=== PATIENT | male | born 1955 | race Caucasian/White ===

== ENCOUNTER 2016-11-21 16:04 | Emergency (ER) | payer OTHER ==
[~2016-11-21] VITALS: Ht 190.5 cm; Wt 136.4 kg
[2016-11-21 16:35] VITALS: BP 149/80; PULSE 89; RESP 18; O2SAT 96
[2016-11-21 18:34] LABS: BASOPHILS % (AUTO) 0.4 % (0-3); EOSINOPHILS % (AUTO) 1.3 % (0-5); MONOCYTES % (AUTO) 7.9 % (4-12); Mean Corpuscular Hemoglobin 28.4 pg (27.0-35.0); Mean Corpuscular Volume 87.8 fL (81-100); NEUTROPHILS % (AUTO) 81.2 % (40-74); Platelet Count 239 bil/L (150-400)
--- NOTE | 2016-11-21 19:08 | DRSVH ---
PROCEDURE: X-RAY LEFT FOOT COMPLETE, MINIMUM THREE VIEWS ([id number]) INDICATIONS: R/O OSTEOMYLETIS TECHNIQUE: 3 views of the foot were acquired. COMPARISON: None. FINDINGS: Bones: No fractures or dislocations. No suspicious bony lesions. Soft tissues: No tibiotalar joint effusion. Achilles tendon appears normal. IMPRESSION: No acute fracture. No osseous lesion. If clinical suspicion and/or symptoms persist, fur ther assessment with repeat plainfilms, or advanced imaging (e.g., CT, MRI, or bone scan) may be help ful for further assessment. Dictated by: Ginger Becker M.D. on 11/21/2016 at 19:06 Approved by: Ginger Becker M.D. on 11/21/2016 at 19:06
--- NOTE | 2016-11-21 19:16 | ED.REPORT ---
HPI-Extremity Problem Lower Date of Service November 21, 2016 ED Provider: Kareem Menon PA-C Leandro is a 61-year-old male with a history of diabetes, neuropathy, hypertension , hyperlipidemia presenting with a chief complaint of a possible left foot infection. Patient reports noticing redness and swelling approximately 2 days ago followed shortly thereafter by the appearance of a sore on the lateral aspect of the fifth MTP joint. Patient reports the pain is aggravated by walking on the foot. He does not feel a significant amount of pain when at rest. Admits recent upper respiratory infection consisting of rhinorrhea, sore throat and fever. Denies continuing fevers, malaise, abdominal pain, vomiting, diarrhea, chest pain, coughing, shortness of breath. Nursing Notes Stated Complaint: POSS INFECTED LEFT FOOT Chief Complaint: Extremity Trauma Nursing Notes Reviewed: Yes Allergies: Coded Allergies: No Known Allergies (Unverified , 11/21/16) Scheduled Clindamycin (Clindamycin) 300 Mg Capsule 300 MG PO QID Clindamycin (Clindamycin) 150 Mg Capsule 150 MG PO QID General Time Seen by MD: 18:58 Chief Complaint Foot injury left Past Medical History Past Medical History Notes: Diabetes, neuropathy, hypertension, hyperlipidemia Review of Systems Negative unless stated otherwise in history of present illness Physical Exam General: Well appearing, well developed, obese, no acute distress. Left foot: Area of redness encompassing the forefoot and projecting up the medial aspect of the lower leg. Swelling and heat over the forefoot and ankle. DP pulse 2+, PT pulse not appreciated, brisk capillary refill in all digits. 2 cm sore on the lateral aspect of the fifth MTP joint with associated tenderness. Head: Atraumatic, normocephalic. Eyes: No scleral icterus or injection. No discharge. Vision grossly intact. ENT: Voice clear, hearing grossly intact. Respiratory: Regular rate and rhythm. Breath sounds present, clear to auscultation and equal bilaterally. No respiratory distress. No increased work of breathing, speaks in complete sentences. Cardiovascular: Regular rate and rhythm, without murmur, gallop or rub. No pedal edema. Gastrointestinal: Abdomen flat and non-tender without guarding or rebound. Bowel sounds normoactive. Skin: Warm and dry. Neurological: Grossly nonfocal. Psychological: Alert and oriented. Speech appropriate, linear and logical. Behavior appropriate. Initial Vital Signs Vital Signs (First) Date Time Temp Pulse Resp B/P Pulse Ox O2 Delivery O2 Flow Rate FiO2 11/21/16 16:35 36.4 89 18 149/80 96 Room Air Initial VS: Vital signs abnormal (mildly elevated blood pressure) Interpretation & Diagnostics Lab Results Interpretation Result Diagram: 11/21/16181411/21/161814 Test 11/21/16 18:15 White Blood Count 11.4th/mm3 (3.8-10.1) Red Blood Count 4.02mil/mm3 (4.40-5.80) Hemoglobin 11.4g/dL (13.8-17.2) Hematocrit 35.3% (41.0-50.0) Mean Corpuscular Volume 87.8fL (81-100) Mean Corpuscular Hemoglobin 28.4pg (27.0-35.0) Mean Corpuscular Hemoglobin Concent 32.3% (32.0-37.0) Red Cell Distribution Width 14.0% (12.3-15.4) Platelet Count 239bil/L (150-400) Neutrophils (%) (Auto) 81.2% (40-74) Lymphocytes (%) (Auto) 8.8% (14-46) Monocytes (%) (Auto) 7.9% (4-12) Eosinophils (%) (Auto) 1.3% (0-5) Basophils (%) (Auto) 0.4% (0-3) Hold Purple Top Tube Received (Received) Hold Blue Top Tube Received (Received) Sodium Level 137mEq/L (134-144) Potassium Level 4.9mEq/L (3.5-5.2) Chloride Level 101mEq/L (97-108) Carbon Dioxide Level 21mmol/L (18-29) Blood Urea Nitrogen 35mg/dL (6-24) Creatinine 1.07mg/dL (0.76-1.27) Estimat Glomerular Filtration Rate 75mL/min (>59) Glucose Level 272mg/dL (60-99) Lactic Acid Level 1.4mmol/L (0.4-2.0) Calcium Level 9.6mg/dL (8.5-10.1) Total Bilirubin 0.2mg/dL (0.0-1.2) Aspartate Amino Transf (AST/SGOT) 17U/L (0-50) Alanine Aminotransferase (ALT/SGPT) 17U/L (0-44) Alkaline Phosphatase 61U/L (25-160) Total Protein 6.9g/dL (6.4-8.4) Albumin 4.0g/dL (3.4-5.0) Hold [place] Top Tube Received (Received) Hold Montiel Top Tube Received (Received) X-Ray Interpretation Xray Interpretation: PROCEDURE: X-RAY LEFT FOOT COMPLETE, MINIMUM THREE VIEWS ([id number]) INDICATIONS: R/O OSTEOMYLETIs IMPRESSION: No acute fracture. No osseous lesion. If clinical suspicion and/or symptoms persist, further assessment with repeat plainfilms, or advanced imaging (e.g., CT, MRI, or bone scan) may be helpful for further assessment. Interpretation / Wet Read by: Interpret - Radiologist, Rin - VENICE Re-Eval/Medical Decision Med Decision/Clinical Course 61-year-old male with history of hypertension, diabetes, neuropathy, hyperlipidemia presents with chief complaint left foot swelling. Reports swelling for the last 2 or 3 days and the appearance of a sore on the lateral aspect of the fifth MTP joint. Denies systemic symptoms. Physical examination reveals swelling in the left foot/ankle and sore on the lateral aspect of the MTP joint. DP pulses 2+, PT pulses not appreciated. Brisk capillary refill in all digits. CBC reveals mild leukocytosis at 11.4 with a left shift and mild anemia. CMP reveals elevated glucose 272 as well as an elevated BUN at 35. I do not believe this is clinically relevant. X-ray reveals no bony involvement. This point I am reassured that there is unlikely be a systemic infection and I find DVT an unlikely cause of the swelling in his foot. I discussed his case with Dr. Vu, who recommends treatment with clindamycin and follow up with podiatry in 2-3 days. Advise [id number] analgesia, podiatry follow-up, provided emergency return precautions. Patient verbalizes understanding of and consented to plan. Discharge & Departure Impression: Primary Impression: Cellulitis of foot Additional Impression: Elevated blood pressure reading Disposition: Home Discharge Condition All VS Reviewed: Yes Condition: Stable Patient Instructions: Cellulitis (ED) Additional Instructions: Evaluation for left foot swelling in the emergency department consists of history, physical examination, blood tests and x-ray, all of which are reassuring that this is unlikely to be caused by a dangerous condition such as osteomyelitis, or infection the bone. There is no indication of a systemic infection at this time. I believe you are good candidate for outpatient treatment, safe to be discharged to home. I will write a prescription for Clindamycin. Take one 300 mg tablet and one 150 mg tablet 4 times a day. The pain is best treated with 800 mg of ibuprofen (Advil, Motrin) every 6 hours , or 1000 mg of acetaminophen (Tylenol) every 6 hours. These drugs can be taken at the same time for more severe pain. Be aware that your symptoms may not improve and may in fact worsen over the next day or 2. This is to be expected, even with appropriate antibiotic treatment. BB referral for podiatry follow up with . Please contact his office to arrange follow-up in the next 2 or 3 days. Return to emergency department for any new or worsening symptoms including fever , racing heart, cold sweats, feeling ill. I also note that your blood pressure was elevated during your visit to the emergency department. Please discuss this with your primary care provider. Referrals: David Leahy DPM EDSupervising Provider for APC: Jose Vu MD copies to: Greg Rivas MD; David Leahy DPM, Seth PA-C November 21, 2016 19:15
[2016-11-21] MEDS ORDERED: CLIN-78 PO (19:33)
[2016-11-21] MEDS ORDERED: CLIN-77 PO (19:34)
[2016-11-21 20:17] VITALS: BP 135/74; PULSE 76; RESP 16; O2SAT 97
== END 2016-11-21 20:18 | disposition home or self-care (01) ==
LOC: SED 16:04
DX: L03.116 Cellulitis of left lower limb (principal); I10 Essential (primary) hypertension; E11.40 Type 2 diabetes mellitus with diabetic neuropathy, unspecified; E78.5 Hyperlipidemia, unspecified

== ENCOUNTER 2017-03-10 16:41 | Inpatient (IN) | payer OTHER ==
[~2017-03-10] VITALS: Ht 190.5 cm; Wt 147.5 kg
[~2017-03-10 16:41] MED LIST: CLIN-77 PO; CLIN-78 PO
[2017-03-10 16:45] VITALS: BP 157/91; PULSE 95; RESP 17; O2SAT 98
[2017-03-10] MEDS ORDERED: cefTRIAXone Inj 2,000 MG in Dextrose 5% Minibag Plus 50 ML IV ONE (17:10)
[2017-03-10] MEDS ORDERED: 0.9% Sodium Chloride 1,000 ML IV ONE (17:16)
--- NOTE | 2017-03-10 17:16 | ED.REPORT ---
HPI-Rash / Abscess Date of Service Mar 10, 2017 ED Provider: Kareem Menon PA-C Leandro is a 61-year-old male with a history of diabetes and cellulitis presenting to emergency Department for left foot swelling. A one-month history of redness and swelling on the lateral aspect of his left foot that began when a corner was torn off accidentally. Associated with pain. He is able to walk on the affected limb. Today he noticed a small region of swelling and fluctuance. He was referred to mention from by his primary care provider. He denies numbness in his toes, fever, shaking chills, feeling ill, abdominal pain, vomiting. Treated several months ago in this department for similar symptoms Nursing Notes Stated Complaint: SWOLLEN LEFT FOOT Chief Complaint: General Complaint Nursing Notes Reviewed: Yes Allergies: Coded Allergies: Contrast Media (Verified Adverse Reaction, Severe, VOMITING - IMMEDIATELY AFTER IV INFUSION, 03/10/17) latex (Verified Adverse Reaction, Intermediate, RASH/SWELLING, 03/10/17) Scheduled Amlodipine (Amlodipine) 5 Mg Tablet 5 MG PO DAILY Bevacizumab (Avastin) 100 Mg/4 Ml Vial 1.25 MG INTRAVIT MONTHLY Ferrous Sulfate (Feosol) 325 Mg Tablet 325 MG PO BIDWM Glimepiride (Glimepiride) 4 Mg Tablet 8 MG PO DAILYAC Pioglitazone (Pioglitazone) 15 Mg Tablet 30 MG PO DAILYWM ACTOS 30 MG IN AM & 15 MG W/ DINNER Pioglitazone (Pioglitazone) 15 Mg Tablet 15 MG PO DAILYWD ACTOS 30 MG IN AM & 15 MG W/ DINNER Pravastatin (Pravastatin) 40 Mg Tablet 40 MG PO HS Scheduled PRN Cyclobenzaprine (Cyclobenzaprine) 10 Mg Tablet 10 MG PO Q8H PRN PRN Spasm Sildenafil Citrate (Sildenafil) 20 Mg Tablet 40-100 MG PO ASDIRECTED PRN PRN for sexual activity diphenhydrAMINE HCl (Benadryl) 25 Mg Capsule 25 MG PO Q4 PRN PRN ALLERGIES oxyCODONE-Acetaminophen 5-325 mg (oxyCODONE-Acetaminophen 5-325 mg) 1 Each Tablet 1 TAB PO Q4H PRN PRN For Pain General Time Seen by MD: 16:52 Chief Complaint Tender/swollen area Past Medical History Past Medical History Notes: Diabetes, neuropathy, hypertension, hyperlipidemia Review of Systems Review of Systems Note: Negative unless stated otherwise in history of present illness Physical Exam General: Well appearing, well developed, well nourished, no acute distress. Left foot: Redness and swelling over the distal lateral aspect of the forefoot as well as the third fourth and fifth digits. Blood blister on the plantar surface of the fifth MTP joint, large area of callous associated. 2 cm area of fluctuance on the superior lateral aspect of the MTP joint. Sensation intact in distal phalanges as well as brisk capillary refill. DP and PT pulses 2+. The foot is warm. Head: Atraumatic, normocephalic. Eyes: No scleral icterus or injection. No discharge. Vision grossly intact. ENT: Voice clear, hearing grossly intact. Respiratory: No respiratory distress, no increased work of breathing. Speaks in complete sentences. Skin: Warm and dry. Neurological: Grossly nonfocal. Psychological: alert and oriented. Speech appropriate, linear and logical. Behavior appropriate. Initial Vital Signs Elevated blood pressure Interpretation & Diagnostics Lab Results Interpretation Result Diagram: 03/16/17 0609 Test 03/10/17 17:54 Erythrocyte Sedimentation Rate 76mm/hr (0-30) Hemoglobin A1c 7.3% (4.8-5.6) Lactic Acid Level 1.2mmol/L (0.4-2.0) Phosphorus Level 4.0mg/dL (2.5-4.9) Total Bilirubin 0.2mg/dL (0.0-1.2) Aspartate Amino Transf (AST/SGOT) 38U/L (0-50) Alanine Aminotransferase (ALT/SGPT) 38U/L (0-44) Alkaline Phosphatase 84U/L (25-160) Total Protein 8.2g/dL (6.4-8.4) Albumin 4.2g/dL (3.4-5.0) ECG Interpretation ECG Interpretation: Sinus rhythm with a rate of 90, left anterior fascicular block, no ischemic changes. Time: 17:39 Interpreted by: ED physician (Dr. Parra) X-Ray Interpretation Xray Interpretation: PROCEDURE: X-RAY LEFT FOOT COMPLETE, MINIMUM THREE VIEWS ([id number]) INDICATIONS: infection. ? Osteomyelitis? IMPRESSION: Significant erosive changes within the fifth digit and questionable early changes in the fourth digit as above. Findings are consistent of osteomyelitis. Interpretation / Wet Read by: Interpret - Radiologist, Interp - AHP Re-Eval/Medical Decision Med Decision/Clinical Course Dr. David met with and examined the patient. He will decompress the wound here in the emergency department, requested admission to hospitalist service, initiation of vancomycin and Zosyn IV and he will plan for surgery in the morning. Patient is resistant to surgery however consents to hospitalization and IV antibiotics which are initiated. Discussed the case with hospitalist, accepts admission and the patient is transferred to floor in stable condition. Consultation #1: Call Returned at: 17:19 Backend Java Developer: Will see patient Note: Will see pt in the ER and see if he can do debridement in the ER with anticpation of home care. Xray and labs currently pending. Consultation #2: Referral / Consult Name: Jeremie Hurst MD Backend Java Developer: Accepts admit Discharge & Departure Referrals: Greg Rivas MD (PCP) EDSupervising Provider for APC: Era Parra MD Attending Statement pt seen and examined cellulitis with abscess/cellulitis over the lateral portion of foot/small toe. Small area of blistering is unroofed and sent for culture. Labs, x-ray. Case is discussed with Dr. David, podiatry. We will come to the emergency department if he can actually do any debriding here in the emergency room in anticipation of discharge from the ER rather than hospitalization. We will certainly need to evaluate all labs as they return to see if discharge is a safe disposition. On initial evaluation, I am not concerned with sepsis and he does have good blood flow to the wound area and the remainder of the foot Seen in the ER by Dr David. Debridement done and after eval decision to admit for IV abx and additoinal surgical debridement was determined to be necessary. Kareem Menon PA-C Mar 10, 2017 17:16 Era Parra MD Mar 10, 2017 17:22 Phosphorus Level 4.0mg/dL (2.5-4.9) Total Bilirubin 0.2mg/dL (0.0-1.2) Aspartate Amino Transf (AST/SGOT) 38U/L (0-50) Alanine Aminotransferase (ALT/SGPT) 38U/L (0-44) Alkaline Phosphatase 84U/L (25-160) Troponin T 0.015ug/L (0.0-0.011) C-Reactive Protein 4.9mg/dL (0.0-0.5) Total Protein 8.2g/dL (6.4-8.4) Albumin 4.2g/dL (3.4-5.0) ECG Interpretation ECG Interpretation: Sinus rhythm with a rate of 90, left anterior fascicular block, no ischemic changes. Time: 17:39 Interpreted by: ED physician (Dr. Parra) X-Ray Interpretation Xray Interpretation: PROCEDURE: X-RAY LEFT FOOT COMPLETE, MINIMUM THREE VIEWS ([id number]) INDICATIONS: infection. ? Osteomyelitis? IMPRESSION: Significant erosive changes within the fifth digit and questionable early changes in the fourth digit as above. Findings are consistent of osteomyelitis. Interpretation / Wet Read by: Interpret - Radiologist, Interp - P Re-Eval/Medical Decision Med Decision/Clinical Course Dr. David met with and examined the patient. He will decompress the wound here in the emergency department, requested admission to hospitalist service, initiation of vancomycin and Zosyn IV and he will plan for surgery in the morning. Patient is resistant to surgery however consents to hospitalization and IV antibiotics which are initiated. Discussed the case with hospitalist, accepts admission and the patient is transferred to floor in stable condition. Consultation #1: Call Returned at: 17:19 Backend Java Developer: Will see patient Note: Will see pt in the ER and see if he can do debridement in the ER with anticpation of home care. Xray and labs currently pending. Consultation #2: Referral / Consult Name: Jeremie Hurst MD Backend Java Developer: Accepts admit Discharge & Departure Referrals: Greg Rivas MD (PCP) EDSupervising Provider for APC: Era Parra MD Attending Statement pt seen and examined cellulitis with abscess/cellulitis over the lateral portion of foot/small toe. Small area of blistering is unroofed and sent for culture. Labs, x-ray. Case is discussed with Dr. David, podiatry. We will come to the emergency department if he can actually do any debriding here in the emergency room in anticipation of discharge from the ER rather than hospitalization. We will certainly need to evaluate all labs as they return to see if discharge is a safe disposition. On initial evaluation, I am not concerned with sepsis and he does have good blood flow to the wound area and the remainder of the foot Kareem Menon PA-C Mar 10, 2017 17:16 Era Parra MD Mar 10, 2017 17:22
[2017-03-10 18:08] LABS: BASOPHILS % (AUTO) 0.6 % (0-3); EOSINOPHILS % (AUTO) 2.2 % (0-5); Mean Corpuscular Hemoglobin 27.2 pg (27.0-35.0); Mean Corpuscular Volume 85.4 fL (81-100); NEUTROPHILS % (AUTO) 75.1 % (40-74); Platelet Count 418 bil/L (150-400)
[2017-03-10 18:22] LABS: ERYTHROCYTE SEDIMENTATION RATE 76 mm/hr (0-30)
--- NOTE | 2017-03-10 18:24 | DRSVH ---
PROCEDURE: X-RAY LEFT FOOT COMPLETE, MINIMUM THREE VIEWS ([id number]) INDICATIONS: infection. ? Osteomyelitis? TECHNIQUE: 3 views of the foot were acquired. COMPARISON: [facility], CR, XR FOOT 3VW LT, 11/21/2016, 18:34. FINDINGS: Bones: There has been interval erosion of the distal fifth metatarsal and proximal fifth phalanx. Min imal appearance of questionable lucency is noted along the lateral aspect of the distal fourth metata rsal. Significant soft tissue swelling is present within the fifth digit. Soft tissues: No tibiotalar joint effusion. Achilles tendon appears normal. IMPRESSION: Significant erosive changes within the fifth digit and questionable early changes in the fourth digit as above. Findings are consistent of osteomyelitis. Dictated by: Jennifer Patten M.D. on 03/10/2017 at 18:22 Approved by: Jennifer Patten M.D. on 03/10/2017 at 18:23
[2017-03-10 18:29] LABS: TROPONIN T 0.015 ug/L (0.0-0.011)
[2017-03-10 18:40] VITALS: BP 139/75; PULSE 84; RESP 24; O2SAT 97
[2017-03-10] MEDS ORDERED: Vancomycin Dose per Pharmacist XX ONE (19:00)
[2017-03-10] MEDS ORDERED: Piperacillin-Tazo 3.375 Gm Inj 3.375 GM in Dextrose 5% Minibag Plus 50 ML IV ONE (19:00)
[2017-03-10] MEDS ORDERED: 0.9% Sodium Chloride 1,000 ML IV SCH (19:09)
[2017-03-10] MEDS ORDERED: Alum-Mag Hydrox-Simeth 30 mL Suspension PO PRN (19:10)
--- NOTE | 2017-03-10 19:20 | PCM.HPMED ---
Subjective Date of Service Mar 10, 2017 Primary Provider: Admitting Physician: Primary Care Physician: Greg Rivas MD Attending Physician: Chief Complaint: Patient 61-year-old male from home presented to the ED under the recommendation of his PCP to the ED for further evaluation of his left lower foot wound History of Present Illness: Patient carries a medical history significant for long-standing diabetes with peripheral neuropathy, hypertension, dyslipidemia. Per patient, he reports having left lower foot swollen up to the ankle with associated erythema and purulent discharge for about 1.5-2 weeks. Though patient denies any fever, chills or night sweats. Left fifth toe became infected back in 11/2016 and was placed initially on clindamycin for about a week , then added Bactrim to reduce swelling and ulcer after 3 weeks. Patient later went [place] cruise ship in 01[place], lacerated his left fifth toe, which immediately became infected, swollen red travels up to this ankle. After the cruise ship, patient restarted his clindamycin and Bactrim with good effects after 1 week. Symptoms however recurs within the past 2 weeks status sought medical attention at the advice from his PCP. In the ED, significant left lower leg swelling up to the ankle prompted 3 view left foot x-ray which showed severe erosive changes within the fifth digit and questionable early change fourth digits consistent with osteomyelitis. Lab work further showed elevated white count 12.7 with neutrophil 75.1%. And C- reactive protein of 4.9. BMP show BUN 54, creatinine 1.86. This is significantly elevated from earlier lab work in 11/2016, creatinine 1.07 at the time. Additionally troponin T mild elevated 0.015. EKG showed no ST changes, however does note left fascicular block. Dr. David on-call podiatry was consulted, came to evaluate and initial debridement of the wound demonstrates cellulitis with osteomyelitis and recommended that patient undergo further debridement in the OR. Patient however reluctant to agree. Patient states agreement to the use of antibiotics, will consider surgery in the a.m. Review of Systems: A comprehensive review of systems was conducted with the patient and found to be negative except as above in the History of Present Illness. Allergies Coded Allergies: Contrast Media (Verified Adverse Reaction, Severe, VOMITING - IMMEDIATELY AFTER IV INFUSION, 03/10/17) latex (Verified Adverse Reaction, Intermediate, RASH/SWELLING, 03/10/17) Home Medications Avastin 1.25 mg monthly Cyclobenzaprine 10 mg every 8 hours when necessary Benadryl 25 mg every 4 hours when necessary Glyburide 8 mg daily Hydroxy code on acetaminophen 5/325 mg every 6 hours when necessary Lisinopril 10 mg every morning Metformin 2000 mg in a.m. thousand milligrams p.m. pioglitazone 30 mg in a.m. 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 PERRLA, EOMI, Anicteric sclerae, moist conjunctivae. Neck: No JVD, No bruits. No lymphadenopathy or thyromegaly. Cardiovascular: Regular rate and rhythm with no murmurs, rubs, or gallops appreciated Pulmonary: b/l air sound with no crackles, wheezes, or rhonchi. no use of accessory muscles. Abdomen: +Bowel sound, Soft, nontender, nondistended. Extremities: No clubbing or cyanosis, no lymphedema, no b/l lower leg edema, left fourth and fifth toe and age, tender, no erythema Skin: Normal temperature, turgor, and texture; no rash. No visualized skin ulcer. Neurological: CN II-VII grossly intact, moving equally on all 4 extremities Psychiatric: Normal mood and affect. AOx3 Lab and Diagnostics Result Diagram: 03/10/17175303/10/171753 Assessment & Plan Patient 61-year-old male with medical history significant for diabetes type II presented with left swollen foot, admitted for cellulitis possible osteomyelitis as well. Left foot cellulitis and osteomyelitis -has DMII with peripheral neuropathy -Blood, wound culture, MRSA screening pending -broad spec abx: renally dosed vancomycin and zosyn -NPO at midnight. Podiatry Dr. David examine and did initial d/c at bedside, will take patient patient to OR should patient agrees tomorrow for further debridement. Sepsis -met SIRS criteria, cellulitis/osteomyelitis -lactic acid normal, hypertensive, no aggressive fluids -NS 125cc/hr plus abx given Acute kidney injury -BUN/Cr >20, poor po intake -hold lisinopril -hydrate NS 125cc/hr Elevated troponin with unknown significant -mildly elevated in the setting of JUAN DAVID -cont home statin, added asa 81mg -trending trops -telemetry monitoring Diabetes type II, non-insulin dependent -hold home meds -start Lispro low dose sliding scale Hypertension -holding lisinopril Dyslipidemia -cont home atorvastatin CODE STATUS full code DVT prophylaxis heparin Patient Status: Patient is admitted under inpatient status with expected length of stay GREATER than 2 midnights due to severity of presenting symptoms, risk of adverse event, and complexity of treatment plan. GI Prophylaxis: Not indicated VTE Prophylaxis: Sub-Q Heparin (Unfractionated) Resuscitation Status: CPR: Attempt Resuscitation Attending Statement The patient was seen and examined together with Dr. Ch on 03/10 and I agree with the history, exam and plan as outlined in the note above. Larry Ch DO Mar 10, 2017 19:20 Jeremie Hurst MD Mar 11, 2017 00:11
[2017-03-10] MEDS ORDERED: Vancomycin Inj 2,250 MG in 0.9% Sodium Chloride 500 ML IV ONE (19:25)
--- NOTE | 2017-03-10 19:41 | PCM.CHPPOD ---
Subjective Date of service Mar 10, 2017 History of Present Illness This 61-year-old male is seen in the emergency department at the request of Dr. Era Jones for diabetic foot infection on the left. Patient's is present. Patient states he has a chronic callus sub-fifth metatarsal head on the left which he feels has been made worse by the need to overload this foot to protect a [place] fracture on the right in the past year. Patient further staple see is aware of sustaining a laceration in this region proximally one month ago. He is a long-standing type II diabetic, stating hemoglobin A1c typically in the low to mid 7 range. He states he has neuropathy, no known nephropathy. Patient noted increased swelling redness and warmth in the past week lateral aspect of the left foot, more recently purulent drainage and malodor. He denies fever chills or malaise. 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 He denies history of diabetic foot infections ulcerations or nonhealing wounds previously. Patient states he is highly reluctant to remain hospitalized, although would consent to outpatient IV antibiotics. 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 He exhibits generally poor insight as to the severity of his condition. Reason for Consultation Diabetic foot infection with osteomyelitis fifth metatarsal head left foot Allergy Allergies: Coded Allergies: No Known Allergies (Unverified , 11/21/16) Medications Clindamycin (Clindamycin) 300 Mg Capsule 300 MG PO QID Clindamycin (Clindamycin) 150 Mg Capsule 150 MG PO QID Past Medical History Additional information Please see medical history and physical Social History Hx Tobacco Use: No Podiatry Consult Exam Vital Signs Vital Sign - Last Date Time Temp Pulse Resp B/P Pulse Ox O2 Delivery O2 Flow Rate FiO2 03/10/17 18:40 84 24 139/75 97 Room Air 03/10/17 16:45 37 Result Diagram: 03/10/17 1754 03/10/17 1754 Lab Test 03/10/17 17:54 White Blood Count 12.7th/mm3 (3.8-10.1) Red Blood Count 3.90mil/mm3 (4.40-5.80) Hemoglobin 10.6g/dL (13.8-17.2) Hematocrit 33.3% (41.0-50.0) Mean Corpuscular Volume 85.4fL (81-100) Mean Corpuscular Hemoglobin 27.2pg (27.0-35.0) Mean Corpuscular Hemoglobin Concent 31.8% (32.0-37.0) Red Cell Distribution Width 13.4% (12.3-15.4) Platelet Count 418bil/L (150-400) Neutrophils (%) (Auto) 75.1% (40-74) Lymphocytes (%) (Auto) 10.5% (14-46) Monocytes (%) (Auto) 11.0% (4-12) Eosinophils (%) (Auto) 2.2% (0-5) Basophils (%) (Auto) 0.6% (0-3) Erythrocyte Sedimentation Rate 76mm/hr (0-30) Sodium Level 138mEq/L (134-144) Potassium Level 4.6mEq/L (3.5-5.2) Chloride Level 100mEq/L (97-108) Carbon Dioxide Level 20mmol/L (18-29) Blood Urea Nitrogen 54mg/dL (6-24) Creatinine 1.86mg/dL (0.76-1.27) Estimat Glomerular Filtration Rate 40mL/min (>59) Glucose Level 161mg/dL (60-99) Lactic Acid Level 1.2mmol/L (0.4-2.0) Calcium Level 9.5mg/dL (8.5-10.1) Total Bilirubin 0.2mg/dL (0.0-1.2) Aspartate Amino Transf (AST/SGOT) 38U/L (0-50) Alanine Aminotransferase (ALT/SGPT) 38U/L (0-44) Alkaline Phosphatase 84U/L (25-160) Troponin T 0.015ug/L (0.0-0.011) C-Reactive Protein 4.9mg/dL (0.0-0.5) Total Protein 8.2g/dL (6.4-8.4) Albumin 4.2g/dL (3.4-5.0) Diagnostics Aerobic swab culture has been taken of the purulent exudate ulcer sub-fifth metatarsal head left foot by ED staff and results are pending, three-view plain x-ray shows ongoing and dissolution of the fifth metatarsal head additionally there is malangulation may represent sequela of prior fracture versus pathologic fracture. There is diffuse edema circumferentially at the fifth metatarsal phalangeal joint. No gas in the soft tissues. No intimal calcification of the pedal vasculature. Exam General: Mild Distress Lower Extremities: Left: Edema localized Extremity warm Other Lower Extremity Pulses: Palpable: Left Posterior Tibal Right Dorsalis Pedis Right Posterior Tibal Absent: Left Dorsalis Pedis Additional Information: Lower extremity exam shows palpable posterior tibial pulses bilaterally, trace dorsalis pedis on the left, dorsalis pedis on the right. Capillary refill is brisk, feet devoid of digital hair growth. Patient has diminished epicritic sensations bilaterally. The left foot exhibits diffuse erythema extending to the proximal midfoot dorsally. There is a dorsal abscess overlying the fifth metatarsal head exuding purulent exudate. There is a 1.5 x 1.5 cm circular ulceration sub- fifth metatarsal head with surrounding plaque-like hyperkeratosis. The foot is malodorous. The digits appeared viable with brisk capillary refill and no gangrenous changes. Effleurage of the distal lateral forefoot does increase exudation. There is no significant lymphangitis. Findings of incision and drainage show a dorsal to plantar sinus tract, purulent exudate from both portals, mild fluctuance at the fifth metatarsal head. Assessment & Plan Assessment Diabetic foot infection with osteomyelitis of the fifth metatarsal head and ascending cellulitis left foot in a patient with severe peripheral neuropathy, and clinically minimal vasculopathy although he may have small vessel disease. Problems: Plan I spent consider full-time discussing the severity and potential for limb loss if this infection is not treated aggressively. Patient is fairly persistent in stating he does not wish to be admitted but does ultimately consent. After discussion of options decision is made and consent signed for ED I&D of the wound to help slow proximal progression, and improve efficacy of parenteral antibiotics. Patient is aware this is simply a temporary measure and is certainly not meant as a definitive treatment. Patient will require operative incision and drainage, resection of metatarsal head, possible amputation of the fifth ray, and is scheduled for this at 9 AM tomorrow morning. Procedure note: I was able to perform I&D without need for local anesthetic, with only mild procedural discomfort. The foot was prepped with Hibiclens, draped and attention directed to the dorsal abscess where a 1 cm incision was made. There was noted to be full-thickness necrosis in the region of the dorsal lateral fifth metatarsal head and fifth intermetatarsal space and the wound was readily probed to the plantar surface. The diffuse plaque-like hyperkeratotic lesion was tangentially debrided, the circumferential R ulcer was enucleated with a 15 blade and I was able to probe from plantar to dorsal. Devitalized tissues were excised. The wound did bleed freely and clotted promptly. The site was irrigated with sterile saline with a 10 cc syringe, saline wet-to-dry loose mesh gauze packing placed dorsally and plantarly followed by a noncompressive bulky gauze bandage. Patient will be started on parenteral antibiotics per the covering hospitalist, taking note of patient's renal compromise. I will discuss the operative consent and need to resect the fifth metatarsal head in order to perform a thorough debridement of this wound with him in the morning. Patient is made aware that healing this type wound is typically measured in weeks rather than days, and he should modify his expectations accordingly. Time spent 90 min Rick David DPM Mar 10, 2017 19:41
[2017-03-10] MEDS: Vancomycin Dose per Pharmacist XX SCH (19:53)
[2017-03-10] MEDS ORDERED: Glucose 40% Oral Gel 15 Gm Tube PO PRN (20:05)
[2017-03-10] MEDS ORDERED: HYDROcodone-APAP 5-325 mg Tablet PO PRN (20:05)
[2017-03-10] MEDS ORDERED: METF1000 PO ×2 (20:09)
[2017-03-10] MEDS ORDERED: DIPH25CA6 PO (20:14)
[2017-03-10] MEDS ORDERED: PIOG15TA21 PO ×2 (20:14)
[2017-03-10] MEDS ORDERED: CYCL10TA9 PO (20:14)
[2017-03-10] MEDS ORDERED: PRAV40TA PO (20:14)
[2017-03-10] MEDS ORDERED: HYDR-4003 PO (20:14)
[2017-03-10] MEDS ORDERED: GLIM4TAB2 PO (20:14)
[2017-03-10] MEDS ORDERED: SILD20TA14 PO (20:14)
[2017-03-10] MEDS ORDERED: LISI-567 PO (20:14)
[2017-03-10] MEDS ORDERED: AVA100I INTRAVIT (20:16)
[2017-03-10 20:19] VITALS: BP 127/53; PULSE 81; RESP 25; O2SAT 97
[2017-03-10] MEDS ORDERED: HYDROmorphone 1 mg/mL Inj IVPUSH PRN (20:25)
[2017-03-10] MEDS: Ondansetron 2 mg/mL 2 mL Inj IVPUSH PRN (20:43)
[2017-03-10 20:47] VITALS: BP 130/50; PULSE 81; RESP 16; O2SAT 97
[2017-03-10 21:05] VITALS: BP 125/77; PULSE 88; RESP 18; O2SAT 96
--- NOTE | 2017-03-10 21:13 | PCM.PHAPRO ---
Progress Date of Service: Mar 10, 2017 Patient 61-year-old male from home presented to the ED under the recommendation of his PCP to the ED for further evaluation of his left lower foot wound Vancomycin Management per Pharmacy Indication: Osteomyelitis of R toe Goal Vanco Trough: 15-20 mg/dL Age: 61 yo Weight: 136 kg Labs: WBC: 12.7 ESR: 76 CRP: 4.9 Lactic Acid: 1.2 SrCr: 1.84 Est CrCl: ~55 mL/min Vitals: All stable Nephrotoxic Risk Factors: Acute Kidney Injury (today SrCr = 1.84 mg/dL, baseline ~1.1 mg/dL), diabetes, Zosyn IV, Pt states he has not been drinking water ~ 1 week bc his refrigerator was broken and he doesn't like warm water, DENIES taking NSAIDS, has NOT been on Bactrim for > 2 months Additional Antibiotics: Zosyn IV Recommendation: Vancomycin 2250 mg IV x 1 given in ED (~16 mg/kg) Maintenance dose: Vancomycin 750 mg IV Q12h, this dose will likely have to be increased if renal function improves w/ hydration (as pt states dehydrated due to not drinking water). As pt did receive an adequate loading dose, I will continue at a smaller dose because of the nephrotoxic risk factors listed above and monitor SrCr for now. Vanco Trough: 03/12 @ 1930 prior to 4th dose. Pharmacy to continue to monitor and adjust dose as needed. Thank You, Salma Harris, Pharm D. Salma Harris Mar 10, 2017 21:13
--- NOTE | 2017-03-10 21:17 | NUR ---
Admit Patient arrived from ED at 2054. Patient A&OX3. Vitals stable. Peripheral IV patent, right AC. Report received from Norma RIVERA. Patients at bedside. Care continues.
[2017-03-10] MEDS: Insulin LISPRO 300 Unit/3 mL Inj SUBQ SCH (22:00)
[2017-03-10] MEDS: 0.9% Sodium Chloride 1,000 ML IV SCH (22:47)
[2017-03-11] VITALS (10 sets, daily range): BP systolic 123–169; BP diastolic 58–96; PULSE 64–86; RESP 15–24; O2SAT 92–100
[2017-03-11] MEDS: Sodium Chloride LOK Flush 10 mL Syringe IVFLUSH SCH ×3 (00:30→18:12)
[2017-03-11] MEDS: Heparin 5,000 Unit/mL Inj SUBQ SCH ×3 (01:29→18:06)
[2017-03-11] MEDS: Piperacillin-Tazo 3.375 Gm Inj 3.375 GM in Dextrose 5% Minibag Plus 50 ML IV SCH ×3 (03:24→19:48)
--- NOTE | 2017-03-11 04:17 | NUR ---
Pain Patient states he doesn't feel like he needs anything for pain. Patient's blood sugar 75, monitoring closely. Patients vitals stable. care continues.
[2017-03-11] MEDS: 0.9% Sodium Chloride 1,000 ML IV SCH ×3 (06:53→19:49)
[2017-03-11] MEDS: Insulin LISPRO 300 Unit/3 mL Inj SUBQ SCH ×4 (08:00→22:00)
[2017-03-11] MEDS ORDERED: Ondansetron 2 mg/mL 2 mL Inj ONE (08:02)
[2017-03-11] MEDS ORDERED: fentaNYL-PF 50 mCg/mL 2 mL Inj ONE (08:02)
[2017-03-11] MEDS ORDERED: Propofol 10,000 mCg/mL 20 mL Inj ONE (08:02)
[2017-03-11] MEDS ORDERED: Vancomycin Inj 750 MG in 0.9% Sodium Chloride 250 ML IV SCH (08:30)
[2017-03-11] MEDS: Vancomycin Dose per Pharmacist XX SCH (08:52)
--- NOTE | 2017-03-11 09:59 | PCM.PNMED ---
Subjective Date of Service Mar 11, 2017 Subjective Patient is in bed, complaining of pain in his left foot Exam Vital Signs Vital Sign - Last Date Time Temp Pulse Resp B/P Pulse Ox O2 Delivery O2 Flow Rate FiO2 03/11/17 04:16 36.8 78 18 133/73 92 Room Air Intake and Output 03/10/17 03/10/17 03/11/17 Cumulative From/Thru 15:00 23:00 07:00 03/10/17 16:45 - 03/11/17 06:31 Intake Total 1000 ml 1025 ml 2025 ml Balance 1000 ml 1025 ml 2025 ml Intake Oral 1025 ml 1025 ml IV Total 1000 ml 1000 ml # Voids 2 2 Exam GENERAL: Alert, not in distress, cooperative HEAD: atraumatic, normocephalic, no bruises. EYES: ROBINSON, EOMI, anicteric, able to fully open and close eyelids SKIN: Skin color normal, turgor normal. No visible rashes or lesions. EAR, NOSE, MOUTH, THROAT: Lips, oral mucosa, tongue gums, oropharynx are moist , pink, no lesions. Ears normal appearance, no lesions. NECK: no jugulovenous distention; supple ROM normal. RESPIRATORY: Lungs clear to auscultation. Good diaphragmatic excursion. CARDIAC: normal S1 and S2; no rubs, murmurs, or gallops; regular rate and rhythm ABDOMEN: Abdomen soft, non-tender. BS normal. No masses or organomegaly. MUSCULOSKELETAL: ROM full, muscles are not tender; left foot in dressing EXTREMITIES: no pitting edema in LE, no new deformities or skin discoloration. NEURO: Alert, oriented X 3, Sensation grossly intact., Cranial nerves II-XII intact, Grossly normal motor function. PULSES: 2+ radial, 2+ carotid Lab and Diagnostics Result Diagram: 03/10/17175303/10/171753 Assessment & Plan Patient 61-year-old male with medical history significant for diabetes type II presented with left swollen foot, admitted for cellulitis possible osteomyelitis as well. Sepsis. Left foot cellulitis and osteomyelitis , s/p I&D - stable Plan - f/u Blood, wound culture - c/w broad spec abx: renally dosed vancomycin and zosyn - Podiatry Dr. David will take the patient to OR for resection of metatarsal head, possible amputation of the fifth ray - c/w IVF Acute kidney failure - stable Plan - IVF - monitor kidney function daily Elevated troponin with unknown significant - improved -mildly elevated in the setting of JUAN DAVID -cont home statin, asa 81mg Diabetes type II, non-insulin dependent - ISS, Acuchecks Hypertension - BP stable Dyslipidemia -cont home atorvastatin CODE STATUS full code DVT prophylaxis heparin Plan of care discussed with patient. Labs, radiology tests and ECG reviewed. Plan of care, medication side effects, home medication, diagnostic procedures and available alternatives were discussed and reviewed with patient. All questions answered. Patient verbalized understanding, approved and agreed to plan of care. GI Prophylaxis: Not indicated VTE Prophylaxis: Sub-Q Heparin (Unfractionated) VTE Mechanical Devices: Intermittant Pneumatic CD Resuscitation Status: CPR: Attempt Resuscitation Wojciech Medrano MD Mar 11, 2017 09:59 Wojciech Medrano MD Mar 11, 2017 09:59
--- NOTE | 2017-03-11 10:02 | PCM.PNPOD ---
Subjective Date of Service: Mar 11, 2017 Date of Service: Mar 11, 2017 Visit Information: Reason for Visit Osteomyelitis Surgery/Surgery Date Post-Op Day # Date of Admission: Mar 10, 2017 at 19:31 Hospital Day # Subjective: This 61-year-old male is seen in his hospital room accompanied by his prior to planned debridement of osteomyelitic fifth metatarsal phalangeal joint and incision and drainage of diabetic foot infection and abscess left foot. This patient is reluctant to consent to this procedure despite my best attempts last evening in the ED to impart to him the necessity of debriding grossly necrotic bone and soft tissues to help prevent proximal spread and more eventual loss of tissue and may be necessary. Despite this attempt last evening patient continues to express reticence to proceed and exhibits generally poor insight as to the severity of his condition although he does appear cognitively capable of this understanding. I have spent approximately one hour with the patient and his this morning, answering questions and trying to the best of my ability to gain their understanding of the seriousness of the condition and necessity for debridement. I showed them comparative x- rays from November and currently which show severe osteolysis of the fifth metatarsal phalangeal joint. I also explained how current x-ray shows possible early osteomyelitic change on the lateral aspect of the fourth metatarsal head as well but that I did not intend to debride this bone at this surgical sitting. Since patient inquired about a second opinion, I did have the orthopedist refrigeration manager Dr. Lu review patient's x-rays and she kindly spoke with the patient regarding the absolute necessity of the debridement procedure. We did change the dressing, the degree of dorsal cellulitis is no worse but not improved and there is narayan suppurative drainage exuding from the plantar ulceration at the fifth metatarsal head, marked edema of the fifth MPJ and fifth digit, and gross malodor. The patient inquired as to the possibility of deferring surgery until there 03/14/2017 however based on the appearance of the wound today I do not feel this would be barton. Ultimately the patient did sign the consent form, with his expressing her verbal concurrence. I attempted to assure the patient that I would not unnecessarily resect more tissue then felt necessary intraoperatively and made it very clear that this is a potentially limb threatening infection and even once the infection is resolved he will have a prolonged course of care necessary to achieve closure of the wound, probable additional surgery, possible resection of the fourth metatarsal head. Procedure will be performed this morning under general anesthesia, no warrantees were made or implied regarding postoperative results. Objective Vital Sign - Last Date Time Temp Pulse Resp B/P Pulse Ox O2 Delivery O2 Flow Rate FiO2 03/11/17 04:16 36.8 78 18 133/73 92 Room Air Intake and Output 03/10/17 03/10/17 03/11/17 Cumulative From/Thru 15:00 23:00 07:00 03/10/17 16:45 - 03/11/17 06:31 Intake Total 1000 ml 1025 ml 2025 ml Balance 1000 ml 1025 ml 2025 ml Intake Oral 1025 ml 1025 ml IV Total 1000 ml 1000 ml # Voids 2 2 Result Diagram: 03/10/17 1754 03/10/17 175 Lab Test 03/10/17 17:54 03/11/17 05:32 White Blood Count 12.7th/mm3 (3.8-10.1) Red Blood Count 3.90mil/mm3 (4.40-5.80) Hemoglobin 10.6g/dL (13.8-17.2) Hematocrit 33.3% (41.0-50.0) Mean Corpuscular Volume 85.4fL (81-100) Mean Corpuscular Hemoglobin 27.2pg (27.0-35.0) Mean Corpuscular Hemoglobin Concent 31.8% (32.0-37.0) Red Cell Distribution Width 13.4% (12.3-15.4) Platelet Count 418bil/L (150-400) Neutrophils (%) (Auto) 75.1% (40-74) Lymphocytes (%) (Auto) 10.5% (14-46) Monocytes (%) (Auto) 11.0% (4-12) Eosinophils (%) (Auto) 2.2% (0-5) Basophils (%) (Auto) 0.6% (0-3) Erythrocyte Sedimentation Rate 76mm/hr (0-30) Sodium Level 138mEq/L (134-144) Potassium Level 4.6mEq/L (3.5-5.2) Chloride Level 100mEq/L (97-108) Carbon Dioxide Level 20mmol/L (18-29) Blood Urea Nitrogen 54mg/dL (6-24) Creatinine 1.86mg/dL (0.76-1.27) Estimat Glomerular Filtration Rate 40mL/min (>59) Glucose Level 161mg/dL (60-99) Lactic Acid Level 1.2mmol/L (0.4-2.0) Calcium Level 9.5mg/dL (8.5-10.1) Phosphorus Level 4.0mg/dL (2.5-4.9) Total Bilirubin 0.2mg/dL (0.0-1.2) Aspartate Amino Transf (AST/SGOT) 38U/L (0-50) Alanine Aminotransferase (ALT/SGPT) 38U/L (0-44) Alkaline Phosphatase 84U/L (25-160) C-Reactive Protein 4.9mg/dL (0.0-0.5) Total Protein 8.2g/dL (6.4-8.4) Albumin 4.2g/dL (3.4-5.0) Troponin T 0.010ug/L (0.0-0.011) Diagnostics A.m. labs pending, left foot x-ray of November 2016 shows a partial-thickness lateral ulceration at the level of the fifth metatarsal head and significant change in the condition of the fifth metatarsophalangeal joint on the current film with essentially dissolution with pathologic fracture of the fifth metatarsal head. Diffuse soft tissue edema of the fifth metatarsophalangeal joint and possible early radiolucency without narayan erosive changes at the lateral aspect of the fourth metatarsal head noted on the current film. Exam Physical Exam Patient is seen resting comfortably in his hospital bed accompanied by his , dressing is dry and intact. Moderate serosanguineous drainage on the dressing. Reexam of the foot shows little change secondary to I&D in the ED last night, the dorsal forefoot continues to be intensely erythematous although it does not appear to be of appreciable proximal spread. There is narayan purulent drainage from the plantar ulcer, marked malodor and grossly edematous fifth digit which is nonfluctuant. The posterior tibial pulse is really palpable at 2 over 4, dorsalis pedis pulses difficult to palpate likely due to the degree of dorsal edema. Capillary refill is brisk, the foot is warm and appears well perfused. General: Mild Distress Lower Extremities: Left: Edema localized Extremity warm Other Lower Extremity Pulses: Palpable: Left Posterior Tibal Right Dorsalis Pedis Right Posterior Tibal Absent: Left Dorsalis Pedis Assessment & Plan Impression Diabetic foot infection, cellulitis, abscess, osteomyelitis of the fifth metatarsal phalangeal joint, left foot, diabetic neuropathy. Problems: Plan As discussed in the subjective component after prolonged and thorough discussion of the necessity and risk for limb loss if debridement is not performed the patient is consented for debridement of bone and soft tissues of the fifth metatarsal phalangeal joint, left foot. Operative plan is to thoroughly debride infected soft tissue and bone and irrigate the joint, obtain intraoperative bone cultures, pack the wound open, and continue parenteral antibiotics as an inpatient. No warrantees were made or implied regarding postoperative results VTE Prophylaxis: Sub-Q Heparin (Unfractionated) Time Spent: 60 Rick David DPM Mar 11, 2017 10:02
[2017-03-11 10:41] LABS: Mean Corpuscular Hemoglobin 27.6 pg (27.0-35.0); Mean Corpuscular Volume 86.6 fL (81-100)
[2017-03-11] MEDS ORDERED: Lactated Ringer's 1,000 ML IV ONE (11:56)
--- NOTE | 2017-03-11 12:00 | NUR ---
to OR for surgery Left foot, with Dr David
[2017-03-11] MEDS ORDERED: Lactated Ringer's 1,000 ML IV SCH (12:21)
[2017-03-11] MEDS ORDERED: Lactated Ringer's 500 ML IV PRN (12:21)
--- NOTE | 2017-03-11 12:21 | PCM.HPANE ---
Patient Data Surgeon Admitting Provider:Jeremie Hurst MD Attending Provider:Jeremie Hurst MD Primary Care Physician:Greg Rivas MD Other Provider:Kayleen Lopez Anesthesia Reason for Visit Osteomyelitis Ht/WT & BMI Height (Feet): 6 Height (Inches): 3.00 Weight (Kilograms): 144.700 Body Mass Index 39.66 Allergies Coded Allergies: Contrast Media (Verified Adverse Reaction, Severe, VOMITING - IMMEDIATELY AFTER IV INFUSION, 03/10/17) latex (Verified Adverse Reaction, Intermediate, RASH/SWELLING, 03/10/17) Past Anesthesia History Anesthesia History: Denies:: Abnormal Airway, Anesthesia Reactions, Difficult Intubation, Fam Anesthesia Reaction, Fam Malignant Hypertherm, Malignant Hyperthermia Diabetes History Hx Diabetes?: Yes Current Bedside Blood Glucose: 82 MRSA MRSA: No Medications Reported Medications Bevacizumab (Avastin)100 Mg/4 Ml Vial1.25 Mg INTRAVIT MONTHLY 03/10/17 diphenhydrAMINE HCl (Benadryl)25 Mg [id number] Mg PO Q4 PRN ALLERGIES Ref 0 03/10/17 Lisinopril 20 Mg Nieecv70 Mg PO QAM 30 Days Ref 0 03/10/17 Pravastatin 40 Mg Wmiylc90 Mg PO HS Ref 0 03/10/17 Cyclobenzaprine 10 Mg Vvhcfn11 Mg PO Q8H PRN Spasm 03/10/17 Hydrocodone-Acetaminophen 5-325 mg 1 Each Tablet1 Tablet PO Q6H PRN For Pain Ref 0 03/10/17 Sildenafil Citrate (Sildenafil)20 Mg Fxpbpp46-301 Mg PO ASDIRECTED PRN for sexual activity 03/10/17 Pioglitazone 15 Mg Iblxob56 Mg PO DAILYWD Ref 0 ACTOS 30 MG IN AM & 15 MG W/ DINNER 03/10/17 Pioglitazone 15 Mg Eargim68 Mg PO DAILYWM Ref 0 ACTOS 30 MG IN AM & 15 MG W/ DINNER 03/10/17 Glimepiride 4 Mg Tablet8 Mg PO DAILYAC #30 TABLET Ref 0 03/10/17 Metformin (Glucophage)1,000 Mg Tablet1,000 Mg PO DAILYWD Ref 0 METFORMIN 2000 MG IN AM & 1000 MG IN PM 03/10/17 Metformin (Glucophage)1,000 Mg Tablet2,000 Mg PO DAILYWM Ref 0 METFORMIN 2000 MG IN AM & 1000 MG IN PM 03/10/17 Discontinued Scripts Clindamycin 150 Mg [id number] Mg PO QID #20 CAPSULE Ref 0 Prov:Kareem Menon LETY 11/21/16 Clindamycin 300 Mg [id number] Mg PO QID #20 CAPSULE Ref 0 Prov:Kareem Menon LETY 11/21/16 History History of ENT Problems?: No HEENT History: Denies:: Abnormal Airway Cataracts Difficult Intubation Dysphagia Glaucoma Hearing Problem Sinus Problem TMJ Denture Type: None Teeth Condition: Within Normal Limits Hx of Heart Problems?: Yes Cardiovascular History: Positive for:: Hypertension Denies:: AICD Abdominal Aortic Aneurism Atrial Fibrillation Cardiac Surgery Chest Pain (elevated troponin-current) Congestive Heart Failure Coronary Artery Disease Edema Heart Murmur Irregular Heartbeat Pacemaker Peripheral Vascular Rheumatic Fever Thrombophlebitis Valvular Heart Disease Other Cardiac History: HLD Hx of Respiratory Problem?: No Respiratory History: Denies:: Asthma COPD Chest Surgery Cough Dyspnea Emphysema Hemoptysis Oxygen Administration Pneumonia Pulmonary Embolism Tuberculosis Use of C-PAP Machine Use of Inhalers / NEBS Hx Neurologic Problems?: Yes Other Neurological Pertinent: diabetic neuropathy Hx of GI Problems?: No Hx of Problems?: No Male Hx: Denies:: Prostate Problems Scrotal Mass Testicular Surgery Hx Musculoskeletal Problems?: No Hx of Psycho/Social Problems?: No Hx Surgeries?: Yes (lt.foot debridement) Hx Any Other Health Problems?: Yes Other History: Denies:: Cancer Hospitalization Thyroid Disease History Blood Transfusions: Positive for:: Accept Blood Products? Denies:: Blood Transfusions Hx Diabetes: YesBedside Blood Glucose: 82 Hx Alcohol Use: NoHx Substance Use: No Smoking Status: Unknown if Ever Smoker Stop/Bang Treated for Sleep Apnea?: No Do You Have a CPAP Machine?: No S-Snoring: Do You Snore Loudly: Yes T-Tired: feel tired, fatigued: No O-Obsered: Observed not breath: No P-Blood Pressure: treated: Yes B- Body Mass Index > 35 kg/m2: Yes A- Age over 50: Yes N- Neck Large Circumference: No G- Gender Male: Yes SUNSHINE Total Score: 5 Risk Assessment Category Category 1A: Patient has history of documented sleep apnea, and HAS NOT received any narcotic, sedative or anesthesia administration during this stay. Category 1B: Patient has history of documented sleep apnea, and HAS received any narcotic , sedative or anesthesia administration during this stay Category 2: Patient has SUSPECTED Obstructive Sleep Apnea, and HAS received any narcotic , sedative or anesthesia administration during this stay. Category 3: Patient has SUSPECTED Obstructive Sleep Apnea and HAS NOT received narcotic, sedative or anesthesia administration during this stay. Category 4: Outpatient in Procedural Areas with known sleep apnea or who screen positive for High Risk via the STOP/BANG questionnaire. Exam Exam Vital Signs Vital Signs Date Time Temp Pulse Resp B/P Pulse Ox O2 Delivery O2 Flow Rate FiO2 03/11/17 04:16 36.8 78 18 133/73 92 Room Air General Appearance: Alert, Oriented X3, Cooperative, No Acute Distress HEENT/AIRWAY: MP 2 Lungs: Clear to Auscultation Heart: Exam Unremarkable Meds/Labs/Diagnostics Admission Meds Current Medications Ceftriaxone Sodium 2000 mg/ Dextrose/Water 50 ml @ 100 mls/hr ONCE ONCE IV Last administered on 03/10/17 18:00; Start 03/10/17 at 17:10; Stop 03/10/17 at 17: 39; Status DC Sodium Chloride (Normal Saline) 1,000 ml @ 0 mls/hr Q0M ONCE IV Last administered on 03/10/17 18:00; Start 03/10/17 at 17:16; Stop 03/10/17 at 17:19; Status DC Pharmacy Consult 1 ea 1 ea ONCE ONCE XX Last administered on 03/10/17 19:00; Start 03/10/17 at 19:00; Stop 03/10/17 at 19:20; Status DC Piperacillin Sod/ Tazobactam Sod/ Dextrose/Water (Zosyn 3.375 Gm Inj/D5W Minibag Plus) 50 ml @ 150 mls/hr ONCE ONCE IV Last administered on 03/10/17 19:47; Start 03/10/17 at 19:00; Stop 03/10/17 at 19:19; Status DC Pharmacy Consult 1 ea 1 ea DAILY XX Last administered on 03/11/17 08:52; Start 03/10/17 at 19:53 Piperacillin Sod/ Tazobactam Sod/ Dextrose/Water (Zosyn 3.375 Gm Inj/D5W Minibag Plus) 50 ml @ 12.5 mls/hr Q8H IV Last administered on 03/11/17 03:24; Start 03/11/17 at 03:30 Heparin Sodium (Porcine) 5000 unit 5,000 unit Q8 SUBQ Last administered on 01:29; Start 03/11/17 at 00:30 Sodium Chloride (Normal Saline) 1,000 ml @ 125 mls/hr Q8H IV Last administered on 03/11/17 06:53; Start 03/10/17 at 19:09 Sodium Chloride 10 ml 10 ml BRITT IVFLUSH Last administered on 03/11/17 09:04; Start 03/11/17 at 00:30 Vancomycin HCl/ Sodium Chloride (Vancocin Inj/ Normal Saline) 500 ml @ 250 mls/ hr ONCE ONCE IV Last administered on 03/10/17 20:40; Start 03/10/17 at 19:25; Stop 03/10/17 at 21:24; Status DC Aspirin (Aspirin Chewable) 81 mg DAILY PO Last administered on 03/10/17 21:13; Start 03/10/17 at 20:05 Atorvastatin Calcium 40 mg 40 mg HS PO Last administered on 03/10/17 21:13; Start 03/10/17 at 21:00 Vancomycin HCl/ Sodium Chloride (Vancocin Inj/ Normal Saline) 250 ml @ 166.667 mls/hr Q12 IV Last administered on 03/11/17 09:04; Start 03/11/17 at 08:30 Bedside Blood Glucose: 82 Labs Test 03/10/17 17:54 03/11/17 05:32 03/11/17 10:30 Neutrophils (%) (Auto) 75.1% (40-74) Lymphocytes (%) (Auto) 10.5% (14-46) Monocytes (%) (Auto) 11.0% (4-12) Eosinophils (%) (Auto) 2.2% (0-5) Basophils (%) (Auto) 0.6% (0-3) Erythrocyte Sedimentation Rate 76mm/hr (0-30) Hemoglobin A1c 7.3% (4.8-5.6) Lactic Acid Level 1.2mmol/L (0.4-2.0) Phosphorus Level 4.0mg/dL (2.5-4.9) Total Bilirubin 0.2mg/dL (0.0-1.2) Aspartate Amino Transf (AST/SGOT) 38U/L (0-50) Alanine Aminotransferase (ALT/SGPT) 38U/L (0-44) Alkaline Phosphatase 84U/L (25-160) C-Reactive Protein 4.9mg/dL (0.0-0.5) Total Protein 8.2g/dL (6.4-8.4) Albumin 4.2g/dL (3.4-5.0) Troponin T 0.010ug/L (0.0-0.011) White Blood Count 9.1th/mm3 (3.8-10.1) Red Blood Count 3.22mil/mm3 (4.40-5.80) Hemoglobin 8.9g/dL (13.8-17.2) Hematocrit 27.9% (41.0-50.0) Mean Corpuscular Volume 86.6fL (81-100) Mean Corpuscular Hemoglobin 27.6pg (27.0-35.0) Mean Corpuscular Hemoglobin Concent 31.9% (32.0-37.0) Red Cell Distribution Width 13.7% (12.3-15.4) Platelet Count 393bil/L (150-400) Plan Impression Patient chart reviewed, patient interviewed and anesthestic plan with risks, benefits, and alternatives discussed, and informed consent obtained. ASA Physical Status: ASA3 Severe Disease Anesthetic Plan: GA Bene/Risks/Altern/Consents: Yes HP Complete Prior to Induction: Yes Gage Ch MD Mar 11, 2017 11:37
[2017-03-11] MEDS ORDERED: fentaNYL-PF 50 mCg/mL 2 mL Inj IVPUSH PRN (12:25)
[2017-03-11] MEDS ORDERED: Phenylephrine 10,000 mCg/mL Inj IVPUSH PRN (12:25)
[2017-03-11] MEDS ORDERED: Dexamethasone 4 mg/mL Inj IVPUSH PRN (12:25)
[2017-03-11] MEDS ORDERED: MetoCLOpramide 5 mg/mL 2 mL Inj IVPUSH PRN (12:25)
[2017-03-11] MEDS ORDERED: EPHEDrine Sulfate 50 mg/mL Inj IVPUSH PRN (12:25)
[2017-03-11] MEDS ORDERED: Ondansetron 2 mg/mL 2 mL Inj IVPUSH PRN (12:25)
[2017-03-11] MEDS ORDERED: HYDROmorphone 1 mg/mL Inj IVPUSH PRN (12:25)
[2017-03-11] MEDS ORDERED: Gentamicin 40 mg/mL 2 mL Inj IRRIGATION ONE (12:58)
[2017-03-11] MEDS ORDERED: Bupivacaine-MPF 0.5% 30 mL Inj INFILTRATE ONE (13:02)
--- NOTE | 2017-03-11 13:38 | PCM.ANEP1 ---
Post Anesthesia PACU Phase 1 Assessment Vital Signs Vital Signs Date Time Temp Pulse Resp B/P Pulse Ox O2 Delivery O2 Flow Rate FiO2 03/11/17 13:30 36.3 64 15 144/69 100 Simple Mask 10 03/11/17 12:19 36.8 86 18 154/96 98 Room Air Anesthetic Administered: GA Level of Alertness: Sleepy, easy to arouse Pain: No Nausea or Vomiting: No CV Function & Hydration Stable: Yes Airway Device: Oxygen Delivery: Simple Mask Lungs: Clear to Auscultation Dermatome Level: Full Sensation PACU Phase 2 Assessment Complications: No Patient Instructions Provided: N/A Gage Ch MD Mar 11, 2017 13:38
--- NOTE | 2017-03-11 13:50 | PCM.PODPO ---
Podiatry Operative Report Date of Service: Mar 11, 2017 Date of Service Mar 11, 2017 Pre Operative Diagnosis Diabetic foot infection, cellulitis, osteomyelitis of fifth metatarsal phalangeal joint left foot Post Operative Diagnosis Same Procedure Incision and drainage of abscess, debridement of diabetic foot infection and resection of fifth metatarsal phalangeal joint left foot Surgeon Surgeon: Jeremie Hurst MD Assistants: None Indication for Procedure Severe osteomyelitis abscess and cellulitis fifth metatarsal phalangeal joint left foot Findings Same Details of Procedure Patient was brought to the operating suite and placed on the table in supine position. Upon initiation of general anesthesia by the anesthesiologist surgical timeout was of serve. A well-padded pneumatic ankle tourniquet was applied on the left and the family was prepped and draped in usual aseptic manner. The tourniquet was inflated to 250 mmHg. Attention was directed to the distal lateral aspect of the left foot. There was a full-thickness suppurating ulceration on the dorsal lateral aspect of the fifth metatarsal neck region, measuring approximately 1 x 1.5 cm and probing deeply, a 1 x 1 cm ulceration was noted at the plantar lateral aspect of the fifth metatarsal head which also probed deep tissues and was copiously exudate and purulent exudate. Intended incisions were marked with pen. The dorsal ulceration was ellipsed via converging semi-elliptical incisions curvilinear incision made extending over the fifth metatarsophalangeal joint and incision continued mid sagittally to the intermediate phalanx of the digit. An approximately 4 cm ellipse of necrotic tissue and ulceration was excised via full thickness sharp dissection. There was noted to be narayan purulent exudate, and diffuse necrotic soft tissues. Dissection continued circumferentially at the fifth metatarsal neck and a osteotomy made which was angled from dorsal to plantar and proximal to distal so as to prevent residual bony prominences. The quality of bone at the resection site appeared normal. There was noted to be a pathologic fracture in the distal fifth metatarsal head. This fracture fragment and the head of the bone was resected and sent to pathology for gross and microscopic exam. Attention was then directed to the base of the proximal phalanx which was freed from the surrounding soft tissue and a linear osteotomy made at the flare of the base and there was noted to be narayan purulent exudate throughout the intramedullary canal of the phalanx therefore the phalanx was excised in toto. The intermediate phalanx was probed and was not overtly soft although was not well visualized. A decision was made to leave the distal and intermediate phalanges. At this time any residual a chronic soft tissues were resected and the site was copiously irrigated with 3 cc saline with gentamicin the a Surgilav device. Tourniquet was released, slight postoperative bleeding was stayed with a brief period of direct pressure. The distal and proximal aspects of the incisions were coapted and closed with 3-0 Prolene with a 3 cm defect remaining dorsally and a 1.5 cm defect remaining plantarly. Capillary refill of the fifth digit was intact. A saline soaked sponge was passed from dorsal to plantar and left as packing. A Xeroform dressing was applied followed by 4 x 4 gauze and a noncompressive bulky gauze bandage. A bone was sent to pathology for gross and microscopic exam, soft tissues were sent for culture. The patient tolerated the procedure well, was extubated uneventfully and left the operating suite in apparently satisfactory condition. Grafts, Implants: None Complications There were no periprocedural complications identified. Condition Stable Anesthetic Administered: GA Drains: None Catheters: None Output, Estimated Blood Loss: 20 Blood Admin during surgery: No Surgical Cast or Splint: Other Surgical Specimen Removed: Yes Specimen sent to Pathology: Yes Post Operative Plan Patient will remain admitted for parenteral antibiotics and monitoring of infection response and wound healing. Rick David DPM Mar 11, 2017 13:50
--- NOTE | 2017-03-11 14:38 | DRSVH ---
PROCEDURE: X-RAY LEFT FOOT COMPLETE, MINIMUM THREE VIEWS ([id number]) INDICATIONS: immediate post-op TECHNIQUE: 3 views of the foot were acquired. COMPARISON: [facility], CR, XR FOOT 3VW LT, 03/10/2017, 17:30. FINDINGS: Bones: There has been interval amputation of the mid and distal fifth metatarsal as well as the proxi mal phalanx. Soft tissues: No tibiotalar joint effusion. Achilles tendon appears normal. Prominent soft tissue edema is present in the region of the fifth digit appearing to be postsurgical. IMPRESSION: Postsurgical changes affecting the fifth digit as above. Dictated by: Jennifer Patten M.D. on 03/11/2017 at 14:35 Approved by: Jennifer Patten M.D. on 03/11/2017 at 14:36
--- NOTE | 2017-03-11 16:35 | NUR ---
Social Work: Screening/Multidisciplinary Rounds D: EMR reviewed. Pt is a 61 y/o male admitted [place] - readmit score of 3 - for osteomyelitis per H&P. Pt's insurance is [employer] and PCP is Greg Rivas MD. Pt's NOK is spouse Tatyana Wagoner [phone]. Pt lives at home with spouse in [place]. SW screened pt's EMR - pt does not screen in for full assessment. Pt discussed in multidisciplinary rounds and is not medically stable for discharge at this time. Pt to go to OR today for amputation and ABX needs will depend on cultures and OR progress. SW discussed potential needs regarding pt's capacity for self-care - no needs at this time. Per RN, SW to follow for possible ABX at discharge and possible HH or SNF based on pt's OR progress. No discharge needs at this time, no MD orders received. SW will continue to follow after pt returns from OR to determine needs at discharge. A: Pt who is independent at baseline. P: SW will continue to follow for potential ABX needs after OR today. No anticipated discharge needs at this time, no MD orders received. SW will continue to follow. SCOT Childers
[2017-03-11] MEDS: Vancomycin 1 Gm/200 mL NS Premix IV SCH (21:23)
[2017-03-12] MEDS: Heparin 5,000 Unit/mL Inj SUBQ SCH ×4 (00:45→23:40)
[2017-03-12] MEDS: Sodium Chloride LOK Flush 10 mL Syringe IVFLUSH SCH ×4 (00:45→23:40)
[2017-03-12 01:28] VITALS: BP 119/69; PULSE 71; RESP 18; O2SAT 97
[2017-03-12] MEDS: 0.9% Sodium Chloride 1,000 ML IV SCH ×3 (02:53→22:46)
[2017-03-12] MEDS: Piperacillin-Tazo 3.375 Gm Inj 3.375 GM in Dextrose 5% Minibag Plus 50 ML IV SCH ×3 (02:54→20:20)
[2017-03-12 04:53] VITALS: BP 132/72; PULSE 73; RESP 18; O2SAT 96
--- NOTE | 2017-03-12 05:02 | NUR ---
PAIN Pain managed well with prn norco and roxicodone alternately, stated he had a good night sleep, VSS afebrile, continues on IV abo, hourly checks, call light in reach at all times.
[2017-03-12 06:49] LABS: BASOPHILS % (AUTO) 0.8 % (0-3); EOSINOPHILS % (AUTO) 4.4 % (0-5); MONOCYTES % (AUTO) 10.7 % (4-12); Mean Corpuscular Hemoglobin 27.7 pg (27.0-35.0); Mean Corpuscular Volume 88.1 fL (81-100); NEUTROPHILS % (AUTO) 69.2 % (40-74); Platelet Count 389 bil/L (150-400)
[2017-03-12] MEDS: Insulin LISPRO 300 Unit/3 mL Inj SUBQ SCH ×4 (08:00→22:00)
[2017-03-12] MEDS: Vancomycin Dose per Pharmacist XX SCH (08:30)
[2017-03-12] MEDS: Vancomycin 1 Gm/200 mL NS Premix IV SCH ×2 (09:00→22:46)
[2017-03-12 09:13] VITALS: BP 122/76; PULSE 77; RESP 20; O2SAT 99
--- NOTE | 2017-03-12 10:11 | PCM.PNMED ---
Subjective Date of Service Mar 12, 2017 Subjective In bed, just got a pain shot, bit groggy, present. Blood sugars well ontrolled. Final relults of cultures still pending,; gram neg anerobe present. Exam Vital Signs Vital Sign - Last Date Time Temp Pulse Resp B/P Pulse Ox O2 Delivery O2 Flow Rate FiO2 03/12/17 09:13 36.6 77 20 122/76 99 Room Air 03/11/17 13:30 10 Intake and Output 03/11/17 03/11/17 03/12/17 Cumulative From/Thru 15:00 23:00 07:00 03/10/17 16:45 - 03/12/17 06:00 Intake Total 650 ml 400 ml 2771 ml 5846 ml Output Total 40 ml 1000 ml 1600 ml 2640 ml Balance 610 ml -600 ml 1171 ml 3206 ml Intake Oral 400 ml 740 ml 2165 ml IV Total 650 ml 2031 ml 3681 ml Output Urine Total 1000 ml 1600 ml 2600 ml Estimated Blood Loss 40 ml 40 ml # Voids 1 1 4 Exam Skin; warm and dry, no rash HENT; good hydration, no lesions Eyes; juanjose, eom intact CV; regular no murmur Resp; clear anteriorly GI; soft non acute benign Lab and Diagnostics Result Diagram: 03/12/17 0622 03/11/17 1030 Assessment & Plan Patient 61-year-old male with medical history significant for diabetes type II presented with left swollen foot, admitted for cellulitis possible osteomyelitis as well. 1. Sepsis, poa, resolved -Please remove this diagnosis as I do not think patient meet SIRS criteria 2. Left foot cellulitis and osteomyelitis, poa, improving -s/p I&D abscess ans removal of 5th metatarsal/phalangeal joint, 03-11-17 -c/w broad spec abx: renally dosed vancomycin and zosyn day #3 -wound culture = strep agalactiae, and gram neg brandon -consider ID consult in AM -will follow with podietry 3. Acute on chronic kidney failure, stage 3 chronically, poa, improving -base line creatinine 1.2 4. Elevated troponin with unknown significant, poa, stable -mildly elevated in the setting of JUAN DAVID -cont home statin, asa 81mg 5. Diabetes type II, poa, stable -HbA1C = 7.3 -low dose correction scale -consider resuming orals soon 6. Hypertension - BP stable 7. Dyslipidemia -cont home atorvastatin Disposition -pcp is Dr. Rivas CODE STATUS full code DVT prophylaxis heparin Plan of care discussed with patient. Labs, radiology tests and ECG reviewed. Plan of care, medication side effects, home medication, diagnostic procedures and available alternatives were discussed and reviewed with patient. All questions answered. Patient verbalized understanding, approved and agreed to plan of care. GI Prophylaxis: Not indicated VTE Prophylaxis: Sub-Q Heparin (Unfractionated) VTE Mechanical Devices: Intermittant Pneumatic CD Resuscitation Status: CPR: Attempt Resuscitation Zac Saunders MD Mar 12, 2017 10:11
--- NOTE | 2017-03-12 10:23 | PCM.PNPOD ---
Subjective Date of Service: Mar 12, 2017 Date of Service: Mar 12, 2017 Visit Information: Reason for Visit Osteomyelitis Surgery/Surgery Date Post-Op Day # Date of Admission: Mar 10, 2017 at 19:31 Hospital Day # Subjective: Patient is seen postop day one status post resection of fifth metatarsal phalangeal joint for osteomyelitis. He is found sitting accompanied by his , left foot elevated. Patient complains of mild pain, slight dizziness, appetite sub-normal. Objective Vital Sign - Last Date Time Temp Pulse Resp B/P Pulse Ox O2 Delivery O2 Flow Rate FiO2 03/12/17 09:13 36.6 77 20 122/76 99 Room Air 03/11/17 13:30 10 Intake and Output 03/11/17 03/11/17 03/12/17 Cumulative From/Thru 15:00 23:00 07:00 03/10/17 16:45 - 03/12/17 06:00 Intake Total 650 ml 400 ml 2771 ml 5846 ml Output Total 40 ml 1000 ml 1600 ml 2640 ml Balance 610 ml -600 ml 1171 ml 3206 ml Intake Oral 400 ml 740 ml 2165 ml IV Total 650 ml 2031 ml 3681 ml Output Urine Total 1000 ml 1600 ml 2600 ml Estimated Blood Loss 40 ml 40 ml # Voids 1 1 4 Result Diagram: 03/12/17 0622 03/11/17 1030 Lab Test 03/10/17 17:54 03/11/17 05:32 03/11/17 10:30 03/12/17 06:22 Erythrocyte Sedimentation Rate 76mm/hr (0-30) Hemoglobin A1c 7.3% (4.8-5.6) Lactic Acid Level 1.2mmol/L (0.4-2.0) Phosphorus Level 4.0mg/dL (2.5-4.9) Total Bilirubin 0.2mg/dL (0.0-1.2) Aspartate Amino Transf (AST/SGOT) 38U/L (0-50) Alanine Aminotransferase (ALT/SGPT) 38U/L (0-44) Alkaline Phosphatase 84U/L (25-160) C-Reactive Protein 4.9mg/dL (0.0-0.5) Total Protein 8.2g/dL (6.4-8.4) Albumin 4.2g/dL (3.4-5.0) Troponin T 0.010ug/L (0.0-0.011) Sodium Level 140mEq/L (134-144) Potassium Level 4.7mEq/L (3.5-5.2) Chloride Level 105mEq/L (97-108) Carbon Dioxide Level 20mmol/L (18-29) Blood Urea Nitrogen 39mg/dL (6-24) Creatinine 1.45mg/dL (0.76-1.27) Estimat Glomerular Filtration Rate 53mL/min (>59) Glucose Level 90mg/dL (60-99) Calcium Level 9.0mg/dL (8.5-10.1) White Blood Count 10.3th/mm3 (3.8-10.1) Red Blood Count 3.36mil/mm3 (4.40-5.80) Hemoglobin 9.3g/dL (13.8-17.2) Hematocrit 29.6% (41.0-50.0) Mean Corpuscular Volume 88.1fL (81-100) Mean Corpuscular Hemoglobin 27.7pg (27.0-35.0) Mean Corpuscular Hemoglobin Concent 31.4% (32.0-37.0) Red Cell Distribution Width 13.9% (12.3-15.4) Platelet Count 389bil/L (150-400) Neutrophils (%) (Auto) 69.2% (40-74) Lymphocytes (%) (Auto) 14.1% (14-46) Monocytes (%) (Auto) 10.7% (4-12) Eosinophils (%) (Auto) 4.4% (0-5) Basophils (%) (Auto) 0.8% (0-3) Diagnostics Intraoperative cultures are pending, white count improving. Exam Physical Exam Patients mood appears improved,, more conversant and in no acute distress. General: Mild Distress Lungs: Clear to Auscultation Lower Extremities: Left: Edema localized Extremity warm Other Lower Extremity Pulses: Palpable: Left Posterior Tibal Right Dorsalis Pedis Right Posterior Tibal Absent: Left Dorsalis Pedis Surgical Cast or Splint: Other Additional Information: Reexam shows dressing to be dry and intact, mild to moderate serosanguineous drainage. Dorsolateral left foot less intensely erythematous and edematous. Incisions appear to be healing primarily. Assessment & Plan Impression Improved appearance of the left foot. Problems: Plan Foot redressed and bandage today, continue current antibiotics pending intraoperative culture results, infectious disease consult if failure to improve significantly in the next day or 2. Wounds may be amenable to delayed primary closure in the outpatient setting when infection fully resolves. Patient is aware that the residual intermediate and distal phalanges of the fifth toe may harbor infection in which case amputation will be necessary. It is also possible patient may need elective amputation of the fifth toe if it is unstable or flail. VTE Prophylaxis: Sub-Q Heparin (Unfractionated) Rick David DPM Mar 12, 2017 10:23
[2017-03-12] MEDS: Polyethylene Glycol (PEG) 17 Gm Powder PO PRN (11:55)
[2017-03-12 14:18] VITALS: BP 125/72; PULSE 69; RESP 19; O2SAT 100
[2017-03-12] MEDS ORDERED: Vancomycin Serum Trough XX ONE (19:30)
--- NOTE | 2017-03-12 19:49 | NUR ---
Activity Pt tolerating pain well, using only oxy 10mg q4. Up to chair twice using FWW and non-wt bearing on foot. No nausea or vomiting during shift.
[2017-03-12 21:12] VITALS: BP 126/69; PULSE 76; RESP 18; O2SAT 98
[2017-03-13] MEDS: Piperacillin-Tazo 3.375 Gm Inj 3.375 GM in Dextrose 5% Minibag Plus 50 ML IV SCH ×3 (03:09→21:11)
[2017-03-13] MEDS: 0.9% Sodium Chloride 1,000 ML IV SCH ×2 (03:09→10:55)
[2017-03-13 04:55] VITALS: BP 147/75; PULSE 74; RESP 18; O2SAT 96
--- NOTE | 2017-03-13 06:20 | NUR ---
NOC Pain well managed with 10mg oxy. LLE slightly swollen. Elevated on pillows all shift. +PT pulses palpable. BG 174 at HS. PT ambulate to BR with SBA and FWW. He bears weight on heel only. Afebrile. Waiting for wound culture results.
[2017-03-13] MEDS: Heparin 5,000 Unit/mL Inj SUBQ SCH ×2 (07:52→17:14)
[2017-03-13] MEDS: Polyethylene Glycol (PEG) 17 Gm Powder PO PRN (07:53)
[2017-03-13] MEDS: Insulin LISPRO 300 Unit/3 mL Inj SUBQ SCH ×5 (07:53→21:22)
[2017-03-13] MEDS: Vancomycin Dose per Pharmacist XX SCH (08:30)
[2017-03-13 09:29] VITALS: BP 139/72; PULSE 80; RESP 19; O2SAT 96
[2017-03-13] MEDS: Vancomycin 1 Gm/200 mL NS Premix IV SCH (10:49)
[2017-03-13] MEDS: Sodium Chloride LOK Flush 10 mL Syringe IVFLUSH SCH ×2 (10:50→17:14)
--- NOTE | 2017-03-13 11:06 | PCM.PNPOD ---
Subjective Date of Service: Mar 13, 2017 Date of Service: Mar 13, 2017 Visit Information: Reason for Visit Osteomyelitis Surgery/Surgery Date Post-Op Day # Date of Admission: Mar 10, 2017 at 19:31 Hospital Day # Subjective: This 61-year-old male is seen postop day 2 status post resection of fifth metatarsal phalangeal joint left foot for osteomyelitis. His is present. Patient denies complaints at present Objective Vital Sign - Last Date Time Temp Pulse Resp B/P Pulse Ox O2 Delivery O2 Flow Rate FiO2 03/13/17 09:29 36.7 80 19 139/72 96 Room Air 03/11/17 13:30 10 Intake and Output 03/12/17 03/12/17 03/13/17 Cumulative From/Thru 14:59 22:59 06:59 03/10/17 16:45 - 03/13/17 05:51 Intake Total 1365 ml 1697 ml 8908 ml Output Total 1100 ml 1000 ml 4740 ml Balance 265 ml 697 ml 4168 ml Intake Oral 1000 ml 400 ml 3565 ml IV Total 365 ml 1297 ml 5343 ml Output Urine Total 1100 ml 1000 ml 4700 ml Estimated Blood Loss 40 ml # Voids 4 Result Diagram: 03/12/17 0622 03/13/17 0735 Lab Test 03/10/17 17:54 03/11/17 05:32 03/12/17 06:22 03/12/17 20:40 Erythrocyte Sedimentation Rate 76mm/hr (0-30) Hemoglobin A1c 7.3% (4.8-5.6) Lactic Acid Level 1.2mmol/L (0.4-2.0) Phosphorus Level 4.0mg/dL (2.5-4.9) Total Bilirubin 0.2mg/dL (0.0-1.2) Aspartate Amino Transf (AST/SGOT) 38U/L (0-50) Alanine Aminotransferase (ALT/SGPT) 38U/L (0-44) Alkaline Phosphatase 84U/L (25-160) C-Reactive Protein 4.9mg/dL (0.0-0.5) Total Protein 8.2g/dL (6.4-8.4) Albumin 4.2g/dL (3.4-5.0) Troponin T 0.010ug/L (0.0-0.011) White Blood Count 10.3th/mm3 (3.8-10.1) Red Blood Count 3.36mil/mm3 (4.40-5.80) Hemoglobin 9.3g/dL (13.8-17.2) Hematocrit 29.6% (41.0-50.0) Mean Corpuscular Volume 88.1fL (81-100) Mean Corpuscular Hemoglobin 27.7pg (27.0-35.0) Mean Corpuscular Hemoglobin Concent 31.4% (32.0-37.0) Red Cell Distribution Width 13.9% (12.3-15.4) Platelet Count 389bil/L (150-400) Neutrophils (%) (Auto) 69.2% (40-74) Lymphocytes (%) (Auto) 14.1% (14-46) Monocytes (%) (Auto) 10.7% (4-12) Eosinophils (%) (Auto) 4.4% (0-5) Basophils (%) (Auto) 0.8% (0-3) Vancomycin Level Trough 14.3mcg/mL Test 03/13/17 07:35 Sodium Level 140mEq/L (134-144) Potassium Level 4.9mEq/L (3.5-5.2) Chloride Level 104mEq/L (97-108) Carbon Dioxide Level 21mmol/L (18-29) Blood Urea Nitrogen 22mg/dL (6-24) Creatinine 1.32mg/dL (0.76-1.27) Estimat Glomerular Filtration Rate 59mL/min (>59) Glucose Level 140mg/dL (60-99) Calcium Level 9.1mg/dL (8.5-10.1) Diagnostics Labwork for 03/13/2017 pending Exam Physical Exam Patient found resting comfortably in bed, no acute distress, appearance improved. General: Mild Distress Lungs: Clear to Auscultation Lower Extremities: Left: Edema localized Extremity warm Other Lower Extremity Pulses: Palpable: Left Posterior Tibal Right Dorsalis Pedis Right Posterior Tibal Absent: Left Dorsalis Pedis Surgical Cast or Splint: Other Additional Information: Dressing dry and intact with moderate serosanguineous drainage noted. Incisions appear to be healing primarily, there is markedly reduced edema and erythema of the forefoot, no new necrotic tissue development, depth of the wound shows early good quality granulation tissue. Assessment & Plan Impression Appearance of the foot improved, infection improving, will monitor for persistent osteomyelitis of the remaining intermediate and distal phalanges of the fifth digit but this is not strongly suggested clinically at this time. Problems: Plan Wounds are repacked with saline wet-to-dry dressing today and I discussed discharge in 1-2 days with outpatient therapy which would involve continued damp to dry gauze wound packing once daily and by mouth versus parenteral antibiotic. Patient may benefit from home health to assist with dressing packing, could follow-up at the wound care center. Patient is able to ambulate on the left thus he could care for himself while his is at work. Given persistent improvement wounds may be amenable to delayed primary closure in the outpatient setting. I would encourage infectious disease consult prior to discharge to optimize antibacterial coverage using the least nephrotoxic agents. VTE Prophylaxis: Sub-Q Heparin (Unfractionated) Rick David DPM Mar 13, 2017 11:06
[2017-03-13] MEDS ORDERED: HYDROmorphone 0.5 mg/0.5 mL iSecure Syringe IVPUSH ONE (11:15)
--- NOTE | 2017-03-13 11:25 | NUR ---
Pain/Activity Patient in 02/[address] David at bedside to assess and redress foot wound. IV Dilauded x1 dose given. Patient declines PT and use of crutches assessment today due to pain. Encouraged pt to at least get up to toilet and sit in chair as PT will not be able to see him again until tomorrow 03/14. Patient is agreeable to mobility plan.
[2017-03-13 13:55] VITALS: BP 133/74; PULSE 77; RESP 20; O2SAT 95
--- NOTE | 2017-03-13 14:00 | PCM.PNMED ---
Subjective Date of Service Mar 13, 2017 Subjective Doing pretty well, no fever, blood sugars pretty good. No new problems overnight. Exam Vital Signs Vital Sign - Last Date Time Temp Pulse Resp B/P Pulse Ox O2 Delivery O2 Flow Rate FiO2 03/13/17 09:29 36.7 80 19 139/72 96 Room Air 03/11/17 13:30 10 Intake and Output 03/12/17 03/12/17 03/13/17 Cumulative From/Thru 15:00 23:00 07:00 03/10/17 16:45 - 03/13/17 05:51 Intake Total 1365 ml 1697 ml 8908 ml Output Total 1100 ml 1000 ml 4740 ml Balance 265 ml 697 ml 4168 ml Intake Oral 1000 ml 400 ml 3565 ml IV Total 365 ml 1297 ml 5343 ml Output Urine Total 1100 ml 1000 ml 4700 ml Estimated Blood Loss 40 ml # Voids 4 Exam Skin; warm and dry, no rash HENT; good hydration, no lesions noted Eyes; juanjose, eom intact CV; regular no murmur Resp; clear anteriorly GI; soft non acute benign Extre; bandages to left foot in place, clean, not removed at this time Lab and Diagnostics Result Diagram: 03/12/17 0622 03/13/17 0735 Assessment & Plan Patient 61-year-old male with medical history significant for diabetes type II presented with left swollen foot, admitted for cellulitis possible osteomyelitis as well. 1. Sepsis, poa, resolved -Please remove this diagnosis as I do not think patient meet SIRS criteria 2. Left foot cellulitis and osteomyelitis, poa, improving -s/p I&D abscess ans removal of 5th metatarsal/phalangeal joint, 03-11-17 -c/w broad spec abx: renally dosed vancomycin and zosyn day #4 -wound culture = strep agalactiae, morganell morgani, an anerobe and normal ender -today will d/c vanco and continue with Zosyn -ID consult in AM -will follow with podiatry -patient did require IV dilaudid for pain control today, dressing change 3. Acute on chronic kidney failure, stage 3 chronically, poa, stable -base line creatinine 1.2 4. Elevated troponin with unknown significant, poa, stable -mildly elevated in the setting of JUAN DAVID -cont home statin, asa 81mg 5. Diabetes type II, poa, stable -HbA1C = 7.3 -low dose correction scale -resume glimerperide 4 mg (usually take 8) -resume metformin ([id number]) -consider restarting pioglitazone when discharged 6. Hypertension, poa, stable - BP stable 7. Dyslipidemia, poa, stable -cont home atorvastatin Disposition -pcp is Dr. Rivas CODE STATUS full code DVT prophylaxis heparin Plan of care discussed with patient. Labs, radiology tests and ECG reviewed. Plan of care, medication side effects, home medication, diagnostic procedures and available alternatives were discussed and reviewed with patient. All questions answered. Patient verbalized understanding, approved and agreed to plan of care. GI Prophylaxis: Not indicated VTE Prophylaxis: Sub-Q Heparin (Unfractionated) VTE Mechanical Devices: Intermittant Pneumatic CD Resuscitation Status: CPR: Attempt Resuscitation Zac Saunders MD Mar 13, 2017 14:00
--- NOTE | 2017-03-13 17:27 | NUR ---
Social Work: Continued Discharge Planning/Multidisciplinary Rounds D: EMR reviewed. Pt is on day 3 of hospitalization. Pt discussed in multidisciplinary rounds and is not medically stable for discharge at this time, anticipate 3-4 more days pending ID and cultures - R/O IVABX needs at discharge. Pt's spouse to provide transport home when medically stable. MD does not identify any concerns for pt's capacity for self care at this time. SW to continue to follow for any needs or MD orders that arise. A: Pt who is independent at baseline. P: SW will continue to follow for potential ABX needs pending ID and cultures. No discharge needs at this time, no MD orders received. SW will continue to follow - R/O possible IVABX needs at discharge. SCOT Childers
[2017-03-13 20:00] VITALS: BP 161/82; PULSE 71; RESP 20; O2SAT 97
[2017-03-13 21:07] VITALS: BP 151/75; PULSE 65
[2017-03-13 23:56] VITALS: BP 154/79; PULSE 63; RESP 18; O2SAT 97
[2017-03-14] MEDS: Heparin 5,000 Unit/mL Inj SUBQ SCH ×4 (00:02→23:45)
[2017-03-14] MEDS: Sodium Chloride LOK Flush 10 mL Syringe IVFLUSH SCH ×4 (00:02→23:46)
[2017-03-14] MEDS: Piperacillin-Tazo 3.375 Gm Inj 3.375 GM in Dextrose 5% Minibag Plus 50 ML IV SCH ×3 (05:00→19:40)
[2017-03-14 05:02] VITALS: BP 155/80; PULSE 75; RESP 18; O2SAT 100
--- NOTE | 2017-03-14 05:51 | NUR ---
PAIN/Left foot surgical wound Pt is alert and oriented x4, denies SOB and is able to communicate needs. He complains of left foot pain which is well managed with oxycodone 10mg Q4hrs. He is afebrile, left leg CMS remains intact, wound covered with dressing, no drainage on the RAJI wrap. Pt ambulated to the BR with SBA, He is NWB/left heel touch. He is on IV antibiotics, tolerating meds well.
[2017-03-14] MEDS: Insulin LISPRO 300 Unit/3 mL Inj SUBQ SCH ×4 (07:46→21:31)
[2017-03-14 10:24] LABS: BASOPHILS % (AUTO) 1.1 % (0-3); EOSINOPHILS % (AUTO) 7.3 % (0-5); MONOCYTES % (AUTO) 8.8 % (4-12); Mean Corpuscular Hemoglobin 27.7 pg (27.0-35.0); Mean Corpuscular Volume 88.4 fL (81-100); NEUTROPHILS % (AUTO) 57.5 % (40-74); Platelet Count 413 bil/L (150-400)
[2017-03-14] MEDS: Ondansetron 2 mg/mL 2 mL Inj IVPUSH PRN (12:42)
[2017-03-14] MEDS ORDERED: HYDROmorphone 0.5 mg/0.5 mL iSecure Syringe IVPUSH PRN (12:45)
--- NOTE | 2017-03-14 12:59 | PCM.PNPOD ---
Subjective Date of Service: Mar 14, 2017 Date of Service: Mar 14, 2017 Visit Information: Reason for Visit Osteomyelitis Surgery/Surgery Date Post-Op Day # Date of Admission: Mar 10, 2017 at 19:31 Hospital Day # Subjective: Patient is seen for days status post resection of the fifth MPJ left foot and is without complaint other than mild persistent pain. Objective Vital Sign - Last Date Time Temp Pulse Resp B/P Pulse Ox O2 Delivery O2 Flow Rate FiO2 03/14/17 05:02 36.4 75 18 155/80 100 Room Air 03/11/17 13:30 10 Intake and Output 03/13/17 03/13/17 03/14/17 Cumulative From/Thru 14:59 22:59 06:59 03/10/17 16:45 - 03/14/17 05:02 Intake Total 3040 ml 750 ml 04062 ml Output Total 1250 ml 950 ml 6940 ml Balance 1790 ml -200 ml 5758 ml Intake Oral 1400 ml 750 ml 5715 ml IV Total 1640 ml 6983 ml Output Urine Total 1250 ml 950 ml 6900 ml Estimated Blood Loss 40 ml # Voids 2 6 # Bowel Movements 1 0 1 Result Diagram: 03/14/17 0621 03/14/17 0621 Lab Test 03/10/17 17:54 03/11/17 05:32 03/12/17 20:40 03/14/17 06:21 Erythrocyte Sedimentation Rate 76mm/hr (0-30) Hemoglobin A1c 7.3% (4.8-5.6) Lactic Acid Level 1.2mmol/L (0.4-2.0) Phosphorus Level 4.0mg/dL (2.5-4.9) Total Bilirubin 0.2mg/dL (0.0-1.2) Aspartate Amino Transf (AST/SGOT) 38U/L (0-50) Alanine Aminotransferase (ALT/SGPT) 38U/L (0-44) Alkaline Phosphatase 84U/L (25-160) C-Reactive Protein 4.9mg/dL (0.0-0.5) Total Protein 8.2g/dL (6.4-8.4) Albumin 4.2g/dL (3.4-5.0) Troponin T 0.010ug/L (0.0-0.011) Vancomycin Level Trough 14.3mcg/mL White Blood Count 9.6th/mm3 (3.8-10.1) Red Blood Count 3.28mil/mm3 (4.40-5.80) Hemoglobin 9.1g/dL (13.8-17.2) Hematocrit 29.0% (41.0-50.0) Mean Corpuscular Volume 88.4fL (81-100) Mean Corpuscular Hemoglobin 27.7pg (27.0-35.0) Mean Corpuscular Hemoglobin Concent 31.4% (32.0-37.0) Red Cell Distribution Width 13.8% (12.3-15.4) Platelet Count 413bil/L (150-400) Neutrophils (%) (Auto) 57.5% (40-74) Lymphocytes (%) (Auto) 23.7% (14-46) Monocytes (%) (Auto) 8.8% (4-12) Eosinophils (%) (Auto) 7.3% (0-5) Basophils (%) (Auto) 1.1% (0-3) Sodium Level 140mEq/L (134-144) Potassium Level 4.8mEq/L (3.5-5.2) Chloride Level 105mEq/L (97-108) Carbon Dioxide Level 20mmol/L (18-29) Blood Urea Nitrogen 21mg/dL (6-24) Creatinine 1.13mg/dL (0.76-1.27) Estimat Glomerular Filtration Rate 71mL/min (>59) Glucose Level 132mg/dL (60-99) Calcium Level 8.8mg/dL (8.5-10.1) Exam Physical Exam Patient has improved color and affect. General: Mild Distress Lungs: Clear to Auscultation Lower Extremities: Left: Edema localized Extremity warm Other Lower Extremity Pulses: Palpable: Left Posterior Tibal Right Dorsalis Pedis Right Posterior Tibal Absent: Left Dorsalis Pedis Surgical Cast or Splint: Other Additional Information: Dressing shows mild to moderate serosanguineous drainage. Marked improvement in cellulitis essentially resolved at this time, wounds appear to be granulating , incisions appear to be healing primarily. The fifth toe shows only trace residual edema with no erythema and the dorsal digital incision is non- dehiscent overall appearance of the foot is markedly improved. Patient was seen with Dr. Jerome of infectious disease. Assessment & Plan Impression Appearance of the foot markedly improved, infection appears to be resolved, wounds appear to be granulating. Problems: Plan Saline wet-to-dry repacking and noncompressive bandage applied today. I feel patient may be discharged to home on by mouth antibiotics per Dr. Jerome with daily wound packing per home health and close follow-up in 1-2 days at the wound care center. VTE Prophylaxis: Sub-Q Heparin (Unfractionated) Rick David DPM Mar 14, 2017 12:58
[2017-03-14] MEDS ORDERED: HYDROmorphone 1 mg/mL Inj IVPUSH ONE (13:00)
--- NOTE | 2017-03-14 14:39 | NUR ---
Social Work- Readiness for Discharge/Multidisciplinary Rounds Data: EMR reviewed. Pt is on day 4 of hospitalization. Pt discussed in multidisciplinary rounds, pt is anticipated to discharge tomorrow. Podiatry is following pt. PT has cleared pt for home with crutches. SW met with pt and at bedside regarding discharge plan. Pt was asleep during this conversation. Pt's confirms that pt has crutches available for use. has questions related to dressing changes at discharge, is worried about pt needing daily dressing changes. Pt's asked about HH services. HH services are mentioned in Podiatry's note, no order has been received at this time. Discussed with that typically HH will only come out three times per week and then the remaining days are supplemented with outpt follow up at the Wound Center. Pt's agreeable to this. Discussed homebound status relating to HH services. Pt will be ambulatory with his boot and crutches but pt will not be driving. Pt's will have to assist pt with transportation. T/C to Podiatry office, Dr. David, regarding wound care needs and dressing changes at discharge. Left message with medical record clerk, requested return call. SW to confirm that HH RN three days a week and then two days of outpt wound center will be appropriate at discharge. Awaiting return call at the time of this note. Assessment: Pt who may require HH RN at discharge but who is independent with self-care at baseline. Plan: SW awaiting return call from Podiatry regarding wound care needs at discharge. SW to confirm that HH RN three days a week and then two days of outpt wound center will be appropriate at discharge. Pt and are agreeable if HH is indicated at discharge. SW continues to follow. Kim Villareal, ENGLISH PROFESSOR
--- NOTE | 2017-03-14 15:36 | CONS ---
[address] [address] CONSULTATION REPORT PATIENT: RODGER DRISCOLL : 1955 MR#: [id number] ADMIT: 03/10/2017 JOB ID: [id number] DATE OF SERVICE: 03/14/2017 [address] thank Drs. David and Chip for this timely consult. REASON FOR CONSULTATION: Osteomyelitis, left lateral forefoot in a diabetic gentleman. HISTORY OF PRESENT ILLNESS: The patient is a 61-year-old man who has had diabetes for two decades or more. He has been relatively free of foot infections apparently until he developed about two months ago a lesion of his left 5th toe. There was progressive infection there and oral clindamycin was used followed by oral Bactrim, but it was a poor response and he continued to have pain, tenderness, swelling of his left lateral forefoot and especially around the left 5th toe. Eventually, during a cruise in January he suffered a further injury to the left lateral forefoot and 5th toe with a laceration and subsequently things started to progress faster. It is notable that during the period he was taking clindamycin and Bactrim he reported a great deal of GI intolerance with both of these agents. In any event, the patient was eventually brought to the attention of the Podiatry Service, admitted to this facility and underwent I and D on March 11. During this procedure, based on radiographs, an area of osteomyelitis in the proximal 5th toe was removed and yet the distal left 5th toe was preserved so that he might have continuity of his foot. In speaking to Dr. David in person about this this afternoon, he reports that he thinks most or all of the infected bone was resected though obviously there is bone both proximal and distal that were in close contact with the resected osteomyelitic bone. For his part this afternoon, the patient says he is free of fevers or chills, not having any constitutional complaints, but it is notable that he just received pain meds, and he is a bit obtunded. Additional history is obtained from his who is an excellent historian. PAST MEDICAL HISTORY: 1. Diabetes mellitus times 2+ decades. 2. Hypertension. 3. Hyperlipidemia. Note that in the past, his diabetic control has been poor with hemoglobin A1c's over 10, but it is now much, much better with hemoglobin A1c's around 7, which is pretty good for a gentleman who has had diabetes for decades. SOCIAL HISTORY: The patient lives in [place] with his . He is currently not working. 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 He does not smoke and never did and drinks alcohol only infrequently. FAMILY HISTORY: Negative for TB in first- and second-degree relatives. REVIEW OF SYSTEMS: This afternoon, the patient is a bit altered by virtue of having just received pain medications, but earlier in the day, he stated no significant headache. No significant visual change or visual loss. No sores in the mouth. No cough, shortness of breath, nausea, vomiting, diarrhea, or dysuria. Remainder of the review of systems is negative. PHYSICAL EXAMINATION: Reveals an afebrile gentleman. Note that he is 190 cm with a weight approaching 150 kg, so a massive man with a BMI of 40.5. He is in no acute distress. Current temp 36.4, pulse 75, respiratory rate 18, blood pressure 155/80, saturating 100% on room air. The patient is able to answer questions but is a bit groggy. Examination of the head: No trauma. Eyes without conjunctivitis. Oral cavity: No thrush or hairy leukoplakia. Neck is hard to examine due to his obesity. Lungs relatively clear. Cardiac tones distant. No murmur appreciated. Abdomen obese, soft, without organomegaly. No suprapubic fullness. He does not have a Toribio catheter at this point. His examination of the legs bilaterally shows some subtle venous stasis changes and poor capillary refill in his toes in both feet. Posterior tibial pulses are palpable but not strong in either foot. Patient still has intact sensation in his feet bilaterally despite his advanced diabetes. No additional skin rash is noted. I had a chance just late this morning to examine his feet with Dr. David of Podiatry. The left foot has three incisions all of which are sutured and 2 or 3 cm in length, one along the lateral foot and two on the dorsal foot. All three of these small incisions appear uninfected. The left 5th toe was surprisingly intact despite the fact that part of the bone has been extracted and the distal left 5th toe appears quite viable if floppy. No synovitis is noted in the large joints. No other notable abnormalities on physical, and the patient is grossly intact neurologically. LABORATORIES: Include white count 9600. It was 12,700 when he came in. Sed rate 76. Platelets 413. Creatinine 1.13, and was it 1.45 when he came in. Calcium 8.8. A C-reactive protein was done prior to surgery and was 4.9 and will repeat that to give us a new baseline. Microbiology: We have two cultures from the area of the toe, one dated March 10 prior to surgery and the other apparently from surgery. These both show group B strep as well as Morganella morganii. The susceptibilities indicate that the group B strep has standard susceptibility and is very sensitive to penicillin and ampicillin as well as of course ceftriaxone. It is clindamycin resistant which many of our group B streps are at this hospital. The Morganella shows good susceptibility including low MICs to ceftriaxone as well as Cipro and Bactrim. IMAGING: A foot x-ray done from the shows erosive changes within the 5th digit consistent with osteomyelitis. The initial x-ray of the foot on March 10 was reviewed and shows destruction of the distal metatarsal 5th as well as the proximal bone in the 5th digit and the following film on March 11 just shows resection of all infected-appearing bone, though the distal bones of the left 5th toe are still intact. IMPRESSION: This is a gentleman with longstanding diabetes who has had about a three-month history now of a festering infection of the left 5th toe and distal left 5th metatarsal. It is growing two classic organisms in terms of diabetic foot infections, namely Morganella, as well as group B strep. It is controversial as to whether or not this should be treated completely with oral antibiotics, completely with IV antibiotics or with some combination. Given the chronic nature of this process and the fact that there is distal bone left in place, I would be inclined to proceed with a fairly cautious course. The patient also tells us he did very poorly with both oral clindamycin and oral Bactrim and would not be interested in trying those antibiotics again which limits our choices somewhat and also makes me a bit skittish about other agents like Augmentin that are known to cause a lot of gastrointestinal disturbance. RECOMMENDATIONS: 1. Will start the patient with three weeks of ceftriaxone to be continued through April 03. 2. I have written orders for the nurses to place a midline catheter. 3. The patient can be set up with a home infusion company and discharged as early as tomorrow if everything is in place. I have asked that a weekly CBC and CMP be sent to me. 4. I will see the patient in my clinic on March 22 to follow up on this. 5. We should get a CRP today and a CRP should actually be done at each weekly lab and I failed to note that but have changed that in this home infusion orders. Note that when the patient reaches a three-week frantz of ceftriaxone, probably switch to Cipro plus a second oral agent to cover group B strep.
[2017-03-14 16:16] VITALS: BP 132/78; PULSE 66; RESP 18; O2SAT 93
--- NOTE | 2017-03-14 18:43 | PCM.PNMED ---
Subjective Date of Service Mar 14, 2017 Subjective Resting in room. I reviewed the consult from Dr. Pierre, his recommendations are appreciated and will be set up. No other new problems, blood sugars OK. Exam Vital Signs Vital Sign - Last Date Time Temp Pulse Resp B/P Pulse Ox O2 Delivery O2 Flow Rate FiO2 03/14/17 16:16 37.2 66 18 132/78 93 Room Air 03/11/17 13:30 10 Intake and Output 03/13/17 03/13/17 03/14/17 Cumulative From/Thru 15:00 23:00 07:00 03/10/17 16:45 - 03/14/17 05:02 Intake Total 3040 ml 750 ml 10870 ml Output Total 1250 ml 950 ml 6940 ml Balance 1790 ml -200 ml 5758 ml Intake Oral 1400 ml 750 ml 5715 ml IV Total 1640 ml 6983 ml Output Urine Total 1250 ml 950 ml 6900 ml Estimated Blood Loss 40 ml # Voids 2 6 # Bowel Movements 1 0 1 Exam Skin; warm and dry, no rash HENT; good hydration, no lesions noted Eyes; juanjose, eom intact CV; regular no murmur Resp; clear anteriorly GI; soft non acute benign Extre; bandages to left foot in place, clean, not removed at this time Lab and Diagnostics Result Diagram: 03/14/1762003/14/17620 Assessment & Plan Patient 61-year-old male with medical history significant for diabetes type II presented with left swollen foot, admitted for cellulitis possible osteomyelitis as well. 1. Sepsis, poa, resolved -Please remove this diagnosis as I do not think patient meet SIRS criteria 2. Left foot cellulitis and osteomyelitis, poa, improving -s/p I&D abscess ans removal of 5th metatarsal/phalangeal joint, 03-11-17 -c/w broad spec abx: renally dosed vancomycin and zosyn day #5 -wound culture = strep agalactiae, morganell morgani, an anerobe and normal ender -yesterday will d/c vanco and continued with Zosyn -will follow with podiatry -patient did require IV dilaudid for pain control today, dressing change -ID recommendations; -3 weeks IV ceftriaxone -mid line catheter -moi CBC, CMP, CRP -CRP today -See Dr Pierre on Sept 13th in his office -After completion of IV ceftriaxone consider continued oral antibiotics 3. Acute on chronic kidney failure, stage 3 chronically, poa, stable -base line creatinine 1.2 4. Elevated troponin with unknown significant, poa, stable -mildly elevated in the setting of JUAN DAVID -cont home statin, asa 81mg 5. Diabetes type II, poa, stable -HbA1C = 7.3 -low dose correction scale -resume glimerperide 4 mg (usually take 8) -resume metformin ([id number]) -consider restarting pioglitazone when discharged 6. Hypertension, poa, stable - BP stable 7. Dyslipidemia, poa, stable -cont home atorvastatin Disposition -pcp is Dr. Rivas CODE STATUS full code DVT prophylaxis heparin Plan of care discussed with patient. Labs, radiology tests and ECG reviewed. Plan of care, medication side effects, home medication, diagnostic procedures and available alternatives were discussed and reviewed with patient. All questions answered. Patient verbalized understanding, approved and agreed to plan of care. GI Prophylaxis: Not indicated VTE Prophylaxis: Sub-Q Heparin (Unfractionated) VTE Mechanical Devices: Intermittant Pneumatic CD Resuscitation Status: CPR: Attempt Resuscitation Zac Saunders MD Mar 14, 2017 18:43
--- NOTE | 2017-03-14 19:22 | NUR ---
Pain Pain well controlled with Kim 10mg q 4hours. Dilaudid given for dressing changes which pt reported made dressing changes much more manageable.
[2017-03-14 19:29] VITALS: BP 145/75; PULSE 63; RESP 18; O2SAT 96
[2017-03-15 00:08] VITALS: BP 160/75; PULSE 73; RESP 18; O2SAT 96
--- NOTE | 2017-03-15 04:19 | NUR ---
Pain/Mobility Patient remains alert and oriented x4, he c/o left foot pain but pain well managed with Oxycodone 10mg every 4hrs. Pt denies nausea or SOB. He ambulated to the bathroom several times with standby assist, heel touch weight bearing. Pt continues to receive Iv antibiotics and tolerating them well. The 2 PIV on right hand were not working at start of shift, IV d/c and new access obtained on the left hand. IV patent remains patent.
[2017-03-15] MEDS: Piperacillin-Tazo 3.375 Gm Inj 3.375 GM in Dextrose 5% Minibag Plus 50 ML IV SCH (05:13)
[2017-03-15 05:15] VITALS: BP 141/75; PULSE 66; RESP 18; O2SAT 96
[2017-03-15 07:52] VITALS: BP 134/75; PULSE 73; RESP 18; O2SAT 96
[2017-03-15] MEDS: Insulin LISPRO 300 Unit/3 mL Inj SUBQ SCH ×4 (08:00→20:44)
[2017-03-15] MEDS: Heparin 5,000 Unit/mL Inj SUBQ SCH ×2 (08:07→17:28)
[2017-03-15] MEDS: Sodium Chloride LOK Flush 10 mL Syringe IVFLUSH SCH ×2 (08:08→17:28)
--- NOTE | 2017-03-15 10:08 | PROG NOTE ---
[address] [address] PROGRESS NOTE PATIENT: RODGER DRISCOLL : 1955 MR#: [id number] ADMIT: 03/10/2017 JOB ID: [id number] DATE: 03/15/2017 INFECTIOUS DISEASE FOLLOW UP NOTE: REASON FOR FOLLOWUP: Osteomyelitis, left 5th toe, status post resection of portions of the left 5th toe and left 5th metatarsal head. INTERVAL HISTORY: Overnight, the patient has been stable. No fevers, chills, sweats, shortness of breath. No nausea, vomiting, diarrhea. He continues to have pain in his left foot which is not surprising given his recent partial amputation of the structures of the left 5th toe. PHYSICAL EXAMINATION: Reveals an afebrile gentleman, temperature 36.8, pulse 73, respiratory rate 18, blood pressure 134/75. He is saturating well on room air. He is in no acute distress. His lungs are clear. His abdomen is benign. He still has a peripheral IV, though we have ordered a midline catheter to be placed today. His left foot is dressed though we described in detail and examined it yesterday. LABORATORIES: Include white count 9600 yesterday, not repeated today. Creatinine was done today. It is 1.6 and his baseline appears to be somewhere around there. He has been as high as 1.86 and as low as 1.13 during his five days here in the hospital. C-reactive protein is now 2 following the partial amputation and this is our new baseline as we proceed to treat his osteomyelitis. Micro studies include the two cultures both of which grew Morganella and group B strep. Both were sensitive, of course, to ceftriaxone. IMPRESSION: This patient is getting prepared for discharge. He and his had many questions about how they would be able to manage his wound care as well as his IV antibiotics at home and I think in speaking to them extensively this morning, the best choice would be for him to come to the [facility] every day through April 03 to receive his daily dose of ceftriaxone as well as wound care as necessary as this would relieve a burden on his and simplify his care. Otherwise the patient is relatively stable at this point, and I think ready for discharge. RECOMMENDATIONS: 1. Ceftriaxone 2 g a day through April 03 to be given in the [facility]. 2. We await placement of a midline catheter. 3. Weekly CBC and CMP will be necessary as well as a CRP on a weekly basis and these will be ordered through the [facility]. 4. I will see the patient in my clinic March 22. 5. All the questions were answered and this case will be discussed with social work.
[2017-03-15] MEDS: cefTRIAXone Inj 2,000 MG in Dextrose 5% Minibag Plus 50 ML IV SCH (11:11)
[2017-03-15] MEDS: 0.9% Sodium Chloride 1,000 ML IV SCH ×2 (11:16→21:21)
[2017-03-15 13:15] LABS: Unsaturated Iron Binding 181.7 ug/dL
[2017-03-15 13:27] VITALS: BP 135/75; PULSE 72; RESP 18; O2SAT 94
--- NOTE | 2017-03-15 13:53 | PCM.PNPOD ---
Subjective Date of Service: Mar 15, 2017 Date of Service: Mar 15, 2017 Visit Information: Reason for Visit Osteomyelitis Surgery/Surgery Date Post-Op Day # Date of Admission: Mar 10, 2017 at 19:31 Hospital Day # Subjective: 61-year-old male seen in the presence of his for follow-up of fifth MPJ osteomyelitis and is without constitutional complaint. He has noted less pain. He states he will remain admitted until tomorrow due to elevated renal function tests. It is his understanding that he will present to [facility] daily for dressing changes which his is not comfortable doing at home and parenteral antibiotics and to the wound care center 2-3 times per week. Objective Vital Sign - Last Date Time Temp Pulse Resp B/P Pulse Ox O2 Delivery O2 Flow Rate FiO2 03/15/17 13:27 36.3 72 18 135/75 94 Room Air 03/11/17 13:30 10 Intake and Output 03/14/17 03/14/17 03/15/17 Cumulative From/Thru 14:59 22:59 06:59 03/10/17 16:45 - 03/15/17 06:01 Intake Total 1181 ml 400 ml 44076 ml Output Total 900 ml 1000 ml 8840 ml Balance 281 ml -600 ml 5439 ml Intake Oral 1181 ml 400 ml 7296 ml IV Total 6983 ml Output Urine Total 900 ml 1000 ml 8800 ml Estimated Blood Loss 40 ml # Voids 6 # Bowel Movements 2 3 Result Diagram: 03/14/17 0621 03/15/17 0610 Lab Test 03/10/17 17:54 03/11/17 05:32 03/12/17 20:40 03/14/17 06:21 Erythrocyte Sedimentation Rate 76mm/hr (0-30) Hemoglobin A1c 7.3% (4.8-5.6) Lactic Acid Level 1.2mmol/L (0.4-2.0) Phosphorus Level 4.0mg/dL (2.5-4.9) Total Bilirubin 0.2mg/dL (0.0-1.2) Aspartate Amino Transf (AST/SGOT) 38U/L (0-50) Alanine Aminotransferase (ALT/SGPT) 38U/L (0-44) Alkaline Phosphatase 84U/L (25-160) Total Protein 8.2g/dL (6.4-8.4) Albumin 4.2g/dL (3.4-5.0) Troponin T 0.010ug/L (0.0-0.011) Vancomycin Level Trough 14.3mcg/mL White Blood Count 9.6th/mm3 (3.8-10.1) Red Blood Count 3.28mil/mm3 (4.40-5.80) Hemoglobin 9.1g/dL (13.8-17.2) Hematocrit 29.0% (41.0-50.0) Mean Corpuscular Volume 88.4fL (81-100) Mean Corpuscular Hemoglobin 27.7pg (27.0-35.0) Mean Corpuscular Hemoglobin Concent 31.4% (32.0-37.0) Red Cell Distribution Width 13.8% (12.3-15.4) Platelet Count 413bil/L (150-400) Neutrophils (%) (Auto) 57.5% (40-74) Lymphocytes (%) (Auto) 23.7% (14-46) Monocytes (%) (Auto) 8.8% (4-12) Eosinophils (%) (Auto) 7.3% (0-5) Basophils (%) (Auto) 1.1% (0-3) Test 03/15/17 06:10 Sodium Level 141mEq/L (134-144) Potassium Level 4.9mEq/L (3.5-5.2) Chloride Level 104mEq/L (97-108) Carbon Dioxide Level 23mmol/L (18-29) Blood Urea Nitrogen 23mg/dL (6-24) Creatinine 1.60mg/dL (0.76-1.27) Estimat Glomerular Filtration Rate 47mL/min (>59) Glucose Level 108mg/dL (60-99) Calcium Level 9.2mg/dL (8.5-10.1) Iron Level 51ug/dL (35-150) Total Iron Binding Capacity 233ug/dL (250-450) Percent Iron Saturation 22%sat (15-50) Unsaturated Iron Binding 181.7ug/dL Ferritin 166ng/mL (30-400) C-Reactive Protein 2.0mg/dL (0.0-0.5) Exam General: Mild Distress Lungs: Clear to Auscultation Lower Extremities: Left: Edema localized Extremity warm Other Lower Extremity Pulses: Palpable: Left Posterior Tibal Right Dorsalis Pedis Right Posterior Tibal Absent: Left Dorsalis Pedis Surgical Cast or Splint: Other Additional Information: Dressing with persistent but reduced serosanguineous drainage, incisions are non -dehiscent, appear to be healing primarily, there continues to be minimal to no erythema or edema although the dorsal soft tissue is somewhat indurated and woody to palpation. The wounds do appear to be granulating Assessment & Plan Impression Proved appearance left foot him a dorsal and plantar wounds which are granulating and which will require further wound care packing or possible VAC therapy. Problems: Plan DC to home per hospitalist with daily dressing changes and parenteral antibiotics at [facility]. Patient should follow with the wound care center 2-3 days post discharge, may bear weight on the left heel only in postop shoe and will require preventive care, diabetic insoles and shoes, in the long-term to help prevent recurrence. VTE Prophylaxis: Sub-Q Heparin (Unfractionated) Rick David DPM Mar 15, 2017 13:53
--- NOTE | 2017-03-15 13:55 | NUR ---
Social Work- Readiness for Discharge/Multidisciplinary Rounds Data: EMR reviewed. Pt is on day 5 of hospitalization. Pt discussed in multidisciplinary rounds, pt is anticipated to discharge tomorrow. Podiatry is following pt. ID is following pt, recommending IV abx daily through [facility]. Written orders received and sent to [facility]. [facility] confirmed receipt. PT has cleared pt for home with crutches. Spoke with Dr. David about HH services, Frankie is agreeable for HH three times weekly and two days of Wound Center. This will require pt's to perform dressing changes over the weekend. SW met with pt and at bedside regarding discharge plan, discussed options of 1) home with HH services and coming to [facility] daily 2) coming into [facility] daily for dressing changes and IV abx 3) SNF. Discussed that pt's will have to perform dressing changes over the weekends. Pt's is not willing to do this at this time. Pt and are agreeable to coming to [facility] daily, pt's confirms that this would be possible and she would transport her daily after she gets home from work at 1600. T/C to Podiatry office, Dr. David, regarding wound care needs and dressing changes at discharge. Left message requesting written orders for [facility]. Also paged him to confirm pt's Wound Care Center follow up as this will likely require an insurance authorization. Confirmed with [facility] that they are able to provide pt with IV abx and dressing changes daily. They have received the orders for IV abx but are awaiting dressing change orders. Assessment: Pt who is independent with ADLs and self-care at baseline. Plan: SW awaiting return call from Podiatry regarding outpt orders for [facility] and Wound Center follow up at discharge. Pt and prefer to go to [facility] for IV abx and dressing changes daily. Pt's insurance may require authorization for the Wound Center. SW will continue to follow. SCOT Garcia Addendum: 03/15/17 at 1700 by INDIA ZAZUETA SS T/C from brett Buenrostro for Podiatry, who states that Dr. David wants pt to follow up with the Wound Center in 2-3 days after discharge and then this will be a recurring appointment in addition to patient's [facility] dressing changes. Due to the late hour, BEHAVIORAL SERVICES TECH will coordinate this tomorrow. Per Wound Center, pt's insurance requires a referral from a PCP. Per Wound Center at this time, the soonest available appointment is next week. SW will continue to follow. SCOT Garcia
[2017-03-15 19:45] VITALS: BP 152/76; PULSE 70; RESP 18; O2SAT 97
--- NOTE | 2017-03-15 22:22 | PCM.PNMED ---
Subjective Date of Service Mar 15, 2017 Subjective Patient is seen and examined. His pain is well controlled, discussed his renal function. His length of stay in the hospital until his renal function is improving. He has no other concerns. Exam Vital Signs Vital Sign - Last Date Time Temp Pulse Resp B/P Pulse Ox O2 Delivery O2 Flow Rate FiO2 03/15/17 19:45 36.6 70 18 152/76 97 Room Air 03/11/17 13:30 10 Intake and Output 03/14/17 03/14/17 03/15/17 Cumulative From/Thru 14:59 22:59 06:59 03/10/17 16:45 - 03/15/17 06:01 Intake Total 1181 ml 400 ml 28095 ml Output Total 900 ml 1000 ml 8840 ml Balance 281 ml -600 ml 5439 ml Intake Oral 1181 ml 400 ml 7296 ml IV Total 6983 ml Output Urine Total 900 ml 1000 ml 8800 ml Estimated Blood Loss 40 ml # Voids 6 # Bowel Movements 2 3 Exam Skin; warm and dry, no rash HENT; NCAT Eyes; juanjose, eom intact CV; regular no murmur Resp; clear to auscultation, no crackles or wheezes GI; soft non acute benign Extre; bandages to left foot in place, clean, not removed at this time Skin warm and dry IVs and Medications Medications Reviewed: Medications were reviewed in detail Lab and Diagnostics Result Diagram: 03/14/17 0621 03/15/17 1540 Assessment & Plan Patient 61-year-old male with medical history significant for diabetes type II presented with left swollen foot, admitted for cellulitis possible osteomyelitis as well. Left foot cellulitis and osteomyelitis, poa, improving -s/p I&D abscess ans removal of 5th metatarsal/phalangeal joint, 03-11-17 -c/w broad spec abx: renally dosed vancomycin+zosyn in the begining and zosyn till 03/15. Started him on ceftriaxone on 03/15. -wound culture = strep agalactiae, morganell morgani, an anerobe and normal ender -will follow with podiatry -patient did require IV dilaudid for pain control today, dressing change -ID recommendations; -3 weeks IV ceftriaxone -mid line catheter -moi CBC, CMP, CRP -CRP today -See Dr Pierre on Sept 13th in his office -After completion of IV ceftriaxone consider continued oral antibiotics Acute on chronic kidney failure, stage 3 chronically, poa, it acutely worsened -base line creatinine 1.2,, worsened this a.m. at 1.6 -- Follow p.m. BMP is ordered -- Patient states he may be dehydrated, start normal saline 100 mL per hour Elevated troponin with unknown significant, poa, stable -mildly elevated in the setting of JUAN DAVID -cont home statin, asa 81mg Diabetes type II, poa, presumed stable -HbA1C = 7.3 -low dose correction scale -resume glimerperide 4 mg (usually take 8) -Held metformin ([id number]) -consider restarting pioglitazone when discharged Hypertension, poa, presumed stable - BP stable Dyslipidemia, poa, presumed stable -cont home atorvastatin Sepsis, poa, ruled out -Please remove this diagnosis as I do not think patient meet SIRS criteria Disposition -pcp is Dr. Rivas CODE STATUS full code DVT prophylaxis heparin Plan of care discussed with patient. Labs, radiology tests and ECG reviewed. Plan of care, medication side effects, home medication, diagnostic procedures and available alternatives were discussed and reviewed with patient. All questions answered. Patient verbalized understanding, approved and agreed to plan of care. Pain Evaluation: Adequate Pain Control GI Prophylaxis: Not indicated VTE Prophylaxis: Sub-Q Heparin (Unfractionated) VTE Mechanical Devices: Intermittant Pneumatic CD Resuscitation Status: CPR: Attempt Resuscitation Time spent 30 minutes Ailin Pritchett DO Mar 15, 2017 22:22
[2017-03-16] MEDS: Sodium Chloride LOK Flush 10 mL Syringe IVFLUSH SCH ×2 (00:30→08:30)
[2017-03-16] MEDS: Heparin 5,000 Unit/mL Inj SUBQ SCH ×2 (01:22→08:31)
[2017-03-16 04:31] VITALS: BP 159/83; PULSE 67; RESP 18; O2SAT 97
--- NOTE | 2017-03-16 04:54 | NUR ---
Pain/Mobility Patient's pain in left foot managed with Q4 pain medications, up several times this shift to void in bathroom with FWW and left foot heel touch. Per report at BM x4 after Miralax. Will continue to monitor.
[2017-03-16] MEDS: Insulin LISPRO 300 Unit/3 mL Inj SUBQ SCH ×2 (07:49→12:00)
[2017-03-16 08:10] VITALS: BP 170/82; PULSE 69; RESP 18; O2SAT 98
[2017-03-16] MEDS: 0.9% Sodium Chloride 1,000 ML IV SCH (08:27)
--- NOTE | 2017-03-16 08:46 | NUR ---
Social Work- Continued D/C Planning Placed call this AM to the Wound Care Center regarding coordination of care. [place] at the Wound Center informed CONTINUOUS IMPROVEMENT FACILITATOR that pt's insurance requires a referral from his PCP. Explained that the PCP will have to submit a Wound Center referral to [facility] prior to pt's appointment. [place] confirmed that pt has an appointment scheduled for MondayMarch 22 at [address] Ordonez. The Wound Center is unable to see pt in 2-3 days after discharge as requested by Dr. David. T/C to pt's PCP Greg Rivas's office regarding referral process. They are familiar with patient's infection and medical history, agreeable to place referral to [facility]. Referral confirmed to be placed during this conversation. At this time, pt will be seen by Dr. Ordonez in the Wound Center on March 22 and receive daily dressing changes in [facility]. Written orders will need to be sent to [facility] to coordinate these dressing changes. T/C to pt's CLARK Buenrostro regarding this plan and requesting written orders for [facility]. Porter will explain plan to Dr. David and obtain necessary orders. SW awaiting confirmation call from Porter or Dr. David to confirm this plan is feasible for pt's discharge. Kim Villareal, CONTINUOUS IMPROVEMENT FACILITATOR
[2017-03-16] MEDS: cefTRIAXone Inj 2,000 MG in Dextrose 5% Minibag Plus 50 ML IV SCH (10:42)
--- NOTE | 2017-03-16 11:35 | PCM.DIMED ---
Discharge Instructions Date of Service Mar 16, 2017 Dates of Hospitalization Mar 10, 2017 at 19:31 Discharge Diagnosis Discharge Diagnosis Osteomyelitis of L lower foot, DM2, HTN, Dyslipidemia Diet Discharge Diet: Diabetic Activity Discharge Activity: Other Call your provider Call your provider for: Fever or Chills, Shortness of breath, Bleeding, Vomitting, Excessive diarrhea, Weakness (unilateral), Other Patient Instructions Patient Instructions Please stay hydrated to avoid kidney failure. Follow-up plan appointment scheduled for MondayMarch 22 at [address] Ordonez at the woundcare center] RECOMMENDATIONS: 1. Ceftriaxone 2 g a day through April 03 to be given in the [facility]. 2. Weekly CBC and CMP will be necessary as well as a CRP on a weekly basis and these will be ordered through the [facility]. 3. Dr. Mariano will see the patient in my clinic March 22. F/U with PCP Dr. Rivas in 2 weeks F/U BMP on 03/20/17 to be sent to PCP Ailin Pritchett DO Mar 16, 2017 11:35
[2017-03-16] MEDS ORDERED: FERR-74 PO (12:05)
[2017-03-16] MEDS ORDERED: AMLO5TAB2 PO (12:17)
--- NOTE | 2017-03-16 12:20 | NUR ---
Social Work- Discharge Data: EMR reviewed. Pt is on day 6 of hospitalization. Pt discussed in multidisciplinary rounds, MD to d/c patient today. Discharge orders are active at this time. Received confirmation from CLARK Buenrostro for Dr. David regarding written orders for [facility]. Received confirmation from Blanca at [facility] of receipt of these orders. Blanca confirms that IV abx orders are complete as well. Blanca to meet with pt and at bedside regarding [facility] infusion process today prior to d/c. Spoke with pt and at bedside to confirm d/c plan. Explained pt's follow up appointment at the Wound Center, his IV abx and dressing change requirements, confirmed that pt and understood. Pt's dressing to be changed prior to discharge today. Pt and are agreeable to plan. Declined any questions. Pt observed ambulating independently in the room during this conversation. Pt to d/c home with to transport via POV. No additional d/c planning needs. Assessment: Pt who will require outpt wound care management and IV abx through [facility]. Plan: Pt to d/c home today with to transport via POV. Wound Care Center appointment and [facility] orders are confirmed. Pt and agreeable to plan, No additional d/c planning needs. Kim Villareal, MONUMENT SETTER
[2017-03-16] MEDS ORDERED: OXYC1TAB24 PO (13:30)
--- NOTE | 2017-03-16 14:02 | PCM.DC.MED ---
Discharge Summary Date of Service Mar 16, 2017 Dates of Hospitalization Date of Hospital Admission Mar 10, 2017 at 19:31 Date of Discharge: Mar 16, 2017 Providers: Admitting Physician: Jeremie Hurst MD Primary Care Physician: Greg Rivas MD Attending Physician: Ailin Silva DO Diagnosis at Time of Discharge Diagnosis at Time of Discharge Osteomyelitis of L lower foot, DM2, HTN, Dyslipidemia Consultations Podiatry, ID, PT/OT Procedures XRay, CTs & MRIs PROCEDURE: X-RAY LEFT FOOT COMPLETE, MINIMUM THREE VIEWS ([id number]) INDICATIONS: immediate post-op TECHNIQUE: 3 views of the foot were acquired. COMPARISON: Merged With [facility], CR, XR FOOT 3VW LT, 03/10/2017, 17:30. FINDINGS: Bones: There has been interval amputation of the mid and distal fifth metatarsal as well as the proximal phalanx. Soft tissues: No tibiotalar joint effusion. Achilles tendon appears normal. Prominent soft tissue edema is present in the region of the fifth digit appearing to be postsurgical. IMPRESSION: Postsurgical changes affecting the fifth digit as above. Dictated by: Jennifer Patten M.D. on 03/11/2017 at 14:35 Approved by: Jennifer Patten M.D. on 03/11/2017 at 14:36 Brief History Patient carries a medical history significant for long-standing diabetes with peripheral neuropathy, hypertension, dyslipidemia. Per patient, he reports having left lower foot swollen up to the ankle with associated erythema and purulent discharge for about 1.5-2 weeks. Though patient denies any fever, chills or night sweats. Left fifth toe became infected back in 11/2016 and was placed initially on clindamycin for about a week , then added Bactrim to reduce swelling and ulcer after 3 weeks. Patient later went [place] a cruise ship in 01/2017, lacerated his left fifth toe, which immediately became infected, swollen red travels up to this ankle. After the cruise ship, patient restarted his clindamycin and Bactrim with good effects after 1 week. Symptoms however recurs within the past 2 weeks status sought medical attention at the advice from his PCP. In the ED, significant left lower leg swelling up to the ankle prompted 3 view left foot x-ray which showed severe erosive changes within the fifth digit and questionable early change fourth digits consistent with osteomyelitis. Lab work further showed elevated white count 12.7 with neutrophil 75.1%. And C- reactive protein of 4.9. BMP show BUN 54, creatinine 1.86. This is significantly elevated from earlier lab work in 11/2016, creatinine 1.07 at the time. Additionally troponin T mild elevated 0.015. EKG showed no ST changes, however does note left fascicular block. Dr. David on-call podiatry was consulted, came to evaluate and initial debridement of the wound demonstrates cellulitis with osteomyelitis and recommended that patient undergo further debridement in the OR. Patient however reluctant to agree. Patient states agreement to the use of antibiotics, will consider surgery in the a.m. Hospital Course Patient 61-year-old male with medical history significant for diabetes type II presented with left swollen foot, admitted for cellulitis possible osteomyelitis as well. Left foot cellulitis and osteomyelitis, poa, improving -s/p I&D abscess ans removal of 5th metatarsal/phalangeal joint, 03-11-17 -c/w broad spec abx: renally dosed vancomycin+zosyn in the begining and zosyn till 03/15. Started him on ceftriaxone on 03/15. -wound culture = strep agalactiae, morganell morgani, an anerobe and normal ender -Podiatry Dr. David followed the patient independent daily dressing changesm Dr. Whyte from bariatric to see the patient in the March 22 for follow-up. The wound care center -- Wound dressing changes in MOC daily -ID recommendations; -3 weeks IV ceftriaxone -mid line catheter -moi CBC, CMP, CRP -CRP today -See Dr Pierre on Mar 22 in his office -After completion of IV ceftriaxone consider continued oral antibiotics -- The day of discharge patient's renal function is improving, is tolerating normal diet Acute on chronic kidney failure, stage 3 chronically, poa, improving -base line creatinine 1.2,, 1.39 at the time of d/c, improving --Patient is asked to stay hydrated to avoid kidney injury --Patient is asked to hold metformin until further advised by PCP due to renal dysfunction --He may start Lisinopril and follow with PCP. --BMP is ordered for tomorrow to be sent to PCP Elevated troponin with unknown significant, poa, stable -mildly elevated in the setting of JUAN DAVID -cont home statin, asa 81mg Diabetes type II, poa, presumed stable -HbA1C = 7.3 -low dose correction scale -resume glimerperide 4 mg (usually take 8) -Held metformin ([id number]), we request that PCP reviews his dose -Patient may restart Pioglitazone -- Metformin is held as above Hypertension, poa, presumed stable -Patient was given amlodipine during this admission due to renal function Dyslipidemia, poa, presumed stable -Continued home atorvastatin Sepsis, poa, ruled out -Please remove this diagnosis as I do not think patient meet SIRS criteria Disposition -pcp is Dr. Rivas CODE STATUS full code DVT prophylaxis heparin Plan of care discussed with patient. Labs, radiology tests and ECG reviewed. Plan of care, medication side effects, home medication, diagnostic procedures and available alternatives were discussed and reviewed with patient. All questions answered. Patient verbalized understanding, approved and agreed to plan of care. Exam Vital Signs (Last) Date Time Temp Pulse Resp B/P Pulse Ox O2 Delivery O2 Flow Rate FiO2 03/16/17 08:10 36.5 69 18 170/82 98 Room Air 03/11/17 13:30 10 Exam Skin; warm and dry, no rash HENT; NCAT Eyes; juanjose, eom intact CV; regular no murmur Resp; clear to auscultation, no crackles or wheezes GI; soft non acute benign Extre; bandages to left foot in place, clean, not removed at this time Skin warm and dry Test 03/10/17 17:54 03/11/17 05:32 03/12/17 20:40 03/14/17 06:21 Erythrocyte Sedimentation Rate 76mm/hr (0-30) Hemoglobin A1c 7.3% (4.8-5.6) Lactic Acid Level 1.2mmol/L (0.4-2.0) Phosphorus Level 4.0mg/dL (2.5-4.9) Total Bilirubin 0.2mg/dL (0.0-1.2) Aspartate Amino Transf (AST/SGOT) 38U/L (0-50) Alanine Aminotransferase (ALT/SGPT) 38U/L (0-44) Alkaline Phosphatase 84U/L (25-160) Total Protein 8.2g/dL (6.4-8.4) Albumin 4.2g/dL (3.4-5.0) Troponin T 0.010ug/L (0.0-0.011) Vancomycin Level Trough 14.3mcg/mL White Blood Count 9.6th/mm3 (3.8-10.1) Red Blood Count 3.28mil/mm3 (4.40-5.80) Hemoglobin 9.1g/dL (13.8-17.2) Hematocrit 29.0% (41.0-50.0) Mean Corpuscular Volume 88.4fL (81-100) Mean Corpuscular Hemoglobin 27.7pg (27.0-35.0) Mean Corpuscular Hemoglobin Concent 31.4% (32.0-37.0) Red Cell Distribution Width 13.8% (12.3-15.4) Platelet Count 413bil/L (150-400) Neutrophils (%) (Auto) 57.5% (40-74) Lymphocytes (%) (Auto) 23.7% (14-46) Monocytes (%) (Auto) 8.8% (4-12) Eosinophils (%) (Auto) 7.3% (0-5) Basophils (%) (Auto) 1.1% (0-3) Test 03/15/17 06:10 03/16/17 06:09 Iron Level 51ug/dL (35-150) Total Iron Binding Capacity 233ug/dL (250-450) Percent Iron Saturation 22%sat (15-50) Unsaturated Iron Binding 181.7ug/dL Ferritin 166ng/mL (30-400) C-Reactive Protein 2.0mg/dL (0.0-0.5) Sodium Level 138mEq/L (134-144) Potassium Level 4.9mEq/L (3.5-5.2) Chloride Level 103mEq/L (97-108) Carbon Dioxide Level 21mmol/L (18-29) Blood Urea Nitrogen 22mg/dL (6-24) Creatinine 1.39mg/dL (0.76-1.27) Estimat Glomerular Filtration Rate 56mL/min (>59) Glucose Level 126mg/dL (60-99) Calcium Level 9.0mg/dL (8.5-10.1) Discharge Medications Discharge Medications Amlodipine (Amlodipine) 5 Mg Tablet 5 MG PO DAILY Prescribed by: AILIN A SILVA, DO Bevacizumab (Avastin) 100 Mg/4 Ml Vial 1.25 MG INTRAVIT MONTHLY (Reported) Ferrous Sulfate (Feosol) 325 Mg Tablet 325 MG PO BIDWM Prescribed by: AILIN SILVA DO Glimepiride (Glimepiride) 4 Mg Tablet 8 MG PO DAILYAC (Reported) Pioglitazone (Pioglitazone) 15 Mg Tablet 30 MG PO DAILYWM (Reported) ACTOS 30 MG IN AM & 15 MG W/ DINNER Pioglitazone (Pioglitazone) 15 Mg Tablet 15 MG PO DAILYWD (Reported) ACTOS 30 MG IN AM & 15 MG W/ DINNER Pravastatin (Pravastatin) 40 Mg Tablet 40 MG PO HS (Reported) As needed Cyclobenzaprine (Cyclobenzaprine) 10 Mg Tablet 10 MG PO Q8H PRN PRN Spasm ( Reported) Sildenafil Citrate (Sildenafil) 20 Mg Tablet 40-100 MG PO ASDIRECTED PRN PRN for sexual activity (Reported) diphenhydrAMINE HCl (Benadryl) 25 Mg Capsule 25 MG PO Q4 PRN PRN ALLERGIES ( Reported) oxyCODONE-Acetaminophen 5-325 mg (oxyCODONE-Acetaminophen 5-325 mg) 1 Each Tablet 1 TAB PO Q4H PRN PRN For Pain Prescribed by: AILIN SILVA DO Followup Plan Follow-up plan appointment scheduled for MondayMarch 22 at [address] Ordonez at the woundcare center] RECOMMENDATIONS: 1. Ceftriaxone 2 g a day through April 03 to be given in the MOC. 2. Weekly CBC and CMP will be necessary as well as a CRP on a weekly basis and these will be ordered through the MOC. 3. Dr. Mariano will see the patient in my clinic March 22. F/U with PCP Dr. Rivas in 1 weeks F/U BMP on 03/17/17 to be sent to PCP Dr. David will see patient on the Discharge Diet: Diabetic Discharge Activity: Other Patient Instructions Please stay hydrated to avoid kidney failure. Time spent Greater than 30 minutes was spent in preparation of discharge with greater than 50% of that time dedicated to patient counseling and coordination of care. Ailin Silva DO Mar 16, 2017 11:42
--- NOTE | 2017-03-16 16:05 | NUR ---
Discharge To home via private vehicle with at ~ 1500. Steady transfer to wheelchair with walking boot and FWW. Pt and express understanding of all discharge instructions and care notes, including followup labs/appts and meds. Rx given. Midline IV left in place for daily infusions at [facility] [place] [facility]. All belongings sent with pt.
--- NOTE | 2017-03-21 09:15 | PATH ---
SURGICAL PATHOLOGY Attending Physician:Rick David DPM CASE STATUS: Signed Out PATIENT NAME: RODGER DRISCOLL PID: [id number] : 1955 DATE COLLECTED:03/11/2017 00:00 SPECIMEN: Toe(s), Amputation, Non-Traumatic CLINICAL HISTORY: OSTEOMYELITIS WITH FRACTURE OF FIFTH METATARSAL FRACTURE, EXCISION 1). FIFTH METATARSAL BONE SEE REQ FINAL DIAGNOSIS: Fifth Metatarsal Bone, Resection: - Bone resection edge: fragments of devitalized and remodelling bone with extensive Neutrophilic inflammation. - Articular surface with degenerative change of overlying cartilage, underlying bone with features compatible with fracture site changes and associated neutrophilic inflammation. - Surrounding soft tissue is viable with active and chronic inflammation. - No evidence of malignancy. ICD10: M86.17 GROSS DESCRIPTION: The specimen is received in formalin, labeled with the patient's name, sublabeled as fifth metatarsal bone, and consists of a resected metatarsal (4.1 x 1.5 x 1.0 cm). The articular head is soft and loosely attached. The adjacent bone is soft and easily sliced with a scalpel. The remaining half of the bone is hard and cannot be sliced with a scalpel. Ink code: black-resection margin. Section code: (A) resection margin, enface; (B-D) bone between resection margin and soft bone, serially sectioned, underwriting account representative; (C, D) soft bone and head, longitudinally sectioned, underwriting account representative. The bone sections have been decalcified. 03/16/17 ICD-9 CODES: CPT CODES: 1: 87415, 57698 Electronically Signed Out Raulito Luis MD [facility] [address], [place] [address] Technical component performed at [facility], [address] [place] [address] Ave[address], [place], [address]
== END 2017-03-16 14:45 | disposition home or self-care (01) | DRG 629 ==
LOC: SED 16:41 → OSC 19:31
PROVIDERS: ADMIT Hospitalist; ATTEND Family Medicine
PROC: 0QBP0ZZ Excision of Left Metatarsal, Open Approach (ICD-10-PCS; principal; 2017-03-11 09:00)
DX: E11.69 Type 2 diabetes mellitus with other specified complication (principal); M84.475A Pathological fracture, left foot, initial encounter for fracture; M86.9 Osteomyelitis, unspecified; E11.621 Type 2 diabetes mellitus with foot ulcer; E11.40 Type 2 diabetes mellitus with diabetic neuropathy, unspecified; I12.9 Hypertensive chronic kidney disease with stage 1 through stage 4 chronic kidney disease, or unspecified chronic kidney disease; N18.3 Chronic kidney disease, stage 3 (moderate); L03.032 Cellulitis of left toe; E78.5 Hyperlipidemia, unspecified; E11.65 Type 2 diabetes mellitus with hyperglycemia; B95.1 Streptococcus, group B, as the cause of diseases classified elsewhere; N17.9 Acute kidney failure, unspecified; Z79.84 Long term (current) use of oral hypoglycemic drugs